=== PATIENT | female | born 1935 | race Caucasian/White ===

== ENCOUNTER 2019-02-17 01:17 | Emergency (ER) | payer OTHER ==
--- NOTE | 2019-02-17 01:55 | EDPHYS ---
Physician Documentation [facility] Name: Rashi Fitzgerald Age: 84 yrs Sex: Female : 1935 Arrival Date: 02/17/2019 Time: 01:23 Bed 17 Private MD: Shan Mir C ED Physician Sergio Koenig HPI: 02/17 01:47 This 84 yrs old Female presents to ER via Ambulatory with complaints of Eye gs Problem. 01:47 was rubbing eyelid noticed bruising of eyelid on xaralto. Onset: The symptoms/episode gs began/occurred yesterday. Duration: the symptoms are continuous. Severity of symptoms: At their worst the symptoms were moderate in the emergency department the symptoms are unchanged. Historical: - Allergies: 01:34 ROSAURA INHIBITORS; ed1 01:34 Erythromycin; ed1 01:34 Latex, Natural Rubber; ed1 01:34 Neosporin (bpr-bys-sbhty); ed1 01:34 PENICILLINS; ed1 - Home Meds: 01:34 Advair Diskus 250-50 mcg/dose Inhl dsdv 1 puff 2 times per day [Active]; carvedilol 25 ed1 mg Oral tab 2 times per day [Active]; Flonase 50 mcg/actuation Nasal spsn 1 spray once daily [Active]; Hydralazine 20 mg Oral twice a day [Active]; Klor-Con M20 20 mEq Oral TbTQ 1 tab 2 times per day [Active]; Lasix 40 mg Oral tab 1 tab once daily [Active]; lorazepam 0.5 mg Oral tab 1 tab nightly [Active]; Protonix 40 mg Oral TbEC 1 tab once daily [Active]; Sular 8.5 mg Oral Tb24 1 tab for Hypertension [Active]; Xarelto 20 mg Oral tab 1 tab once daily [Active]; - PMHx: 01:34 Anxiety; Arthritis; Atrial Fib; Bronchitis; Cancer, Breast; CHF; lumpectomy; ed1 - PSHx: 01:34 Hysterectomy; Thyroidectomy; Lumpectomy; Appendectomy; cancer removal; ed1 - Immunization history:: Adult Immunizations up to date. - Social history:: Smoking status: Patient/guardian denies using tobacco. - Ebola Screening: : Patient negative for fever greater than or equal to 101.5 degrees Fahrenheit, and additional compatible Ebola Virus Disease symptoms Patient denies exposure to infectious person Patient denies travel to an Ebola-affected area in the 21 days before illness onset No symptoms or risks identified at this time. ROS: 01:47 All other systems are negative. Exam: 01:47 Head/Face: Normocephalic, atraumatic. gs 01:47 Constitutional: The patient appears alert, awake. 01:47 Eyes: Periorbital structures: ecchymosis, that is moderate, on the left supraorbital ridge and medial canthus of left eye, Conjunctiva: normal, Corneas: are normal. Vital Signs: 01:34 BP 160 / 97; Pulse 77; Resp 18; Temp 98(TE); Pulse Ox 96% on R/A; Weight 88 kg; Height ed1 5 ft. 5 in. (165.10 cm); Pain 0/10; 01:34 Body Mass Index 32.28 (88.00 kg, 165.10 cm) ed1 MDM: 01:46 Patient medically screened. gs 01:47 Data reviewed: vital signs, nurses notes. Counseling: I had a detailed discussion with the patient and/or guardian regarding: the historical points, exam findings, and any diagnostic results supporting the discharge/admit diagnosis, the need for outpatient follow up. Response to treatment: There is no appreciated change of the patient's symptoms at this time. Administered Medications: No medications were administered Disposition: 02/17/19 01:53 Discharged to Home. Impression: Spontaneous ecchymoses. - Condition is Stable. - Discharge Instructions: Hematoma, [id number]. - Medication Reconciliation Form, Thank You Letter, Antibiotic Education, Prescription Opioid Use form. - Follow up: Private Physician; When: 2 - 3 days; Reason: Re-evaluation by your physician. Signatures: Noemi Leary RN RN ed1 Sergio Koenig MD MD Diane Day cc3 Corrections: (The following items were deleted from the chart) 02:04 01:53 02/17/2019 01:53 Discharged to Home. Impression: Spontaneous ecchymoses. cc3 Condition is Stable. Forms are Medication Reconciliation Form, Thank You Letter, Antibiotic Education, Prescription Opioid Use. Follow up: Private Physician; When: 2 - 3 days; Reason: Re-evaluation by your physician.
--- NOTE | 2019-02-17 01:55 | ER ---
Nurse's Notes [facility] Name: Rashi Fitzgerald Age: 84 yrs Sex: Female : 1935 Arrival Date: 02/17/2019 Time: 01:23 Bed 17 Private MD: Shan Mir C Diagnosis: Spontaneous ecchymoses Presentation: 02/17 01:30 Presenting complaint: Patient states: I had a cancer spot removed off of my forehead on ed1 Wednesday. My doctor told me not to stop my blood thinner. My left eye started to itch and when I looked in the mirror I noticed all of this redness around my eye scares me. Transition of care: patient was not received from another setting of care. Onset of symptoms was February 17, 2019. Risk Assessment: Do you want to hurt yourself or someone else? Patient reports no desire to harm self or others. Initial Sepsis Screen: Does the patient meet any 2 criteria? No. Patient's initial sepsis screen is negative. Does the patient have a suspected source of infection? No. Patient's initial sepsis screen is negative. Care prior to arrival: None. 01:30 Method Of Arrival: Ambulatory ed1 01:30 Acuity: LOLY 3 ed1 Triage Assessment: 01:34 General: Appears in no apparent distress. Behavior is calm, cooperative. Pain: Denies ed1 pain. EENT: Denies blurred vision. Historical: - Allergies: 01:34 ROSAURA INHIBITORS; ed1 01:34 Erythromycin; ed1 01:34 Latex, Natural Rubber; ed1 01:34 Neosporin ([id number]-tqpmf); ed1 01:34 PENICILLINS; ed1 - Home Meds: 01:34 Advair Diskus 250-50 mcg/dose Inhl dsdv 1 puff 2 times per day [Active]; carvedilol 25 ed1 mg Oral tab 2 times per day [Active]; Flonase 50 mcg/actuation Nasal spsn 1 spray once daily [Active]; Hydralazine 20 mg Oral twice a day [Active]; Klor-Con M20 20 mEq Oral TbTQ 1 tab 2 times per day [Active]; Lasix 40 mg Oral tab 1 tab once daily [Active]; lorazepam 0.5 mg Oral tab 1 tab nightly [Active]; Protonix 40 mg Oral TbEC 1 tab once daily [Active]; Sular 8.5 mg Oral Tb24 1 tab for Hypertension [Active]; Xarelto 20 mg Oral tab 1 tab once daily [Active]; - PMHx: 01:34 Anxiety; Arthritis; Atrial Fib; Bronchitis; Cancer, Breast; CHF; lumpectomy; ed1 - PSHx: 01:34 Hysterectomy; Thyroidectomy; Lumpectomy; Appendectomy; cancer removal; ed1 - Immunization history:: Adult Immunizations up to date. - Social history:: Smoking status: Patient/guardian denies using tobacco. - Ebola Screening: : Patient negative for fever greater than or equal to 101.5 degrees Fahrenheit, and additional compatible Ebola Virus Disease symptoms Patient denies exposure to infectious person Patient denies travel to an Ebola-affected area in the 21 days before illness onset No symptoms or risks identified at this time. Screenin:38 Abuse screen: Denies threats or abuse. Denies injuries from another. Nutritional cc3 screening: No deficits noted. Tuberculosis screening: No symptoms or risk factors identified. Fall Risk Ambulatory Aid- None/Bed Rest/Nurse Assist (0 pts). Gait- Normal/Bed Rest/Wheelchair (0 pts) Mental Status- Oriented to own ability (0 pts). Assessment: 01:38 General: Appears in no apparent distress. comfortable, Behavior is calm, cooperative, cc3 appropriate for age. Pain: Denies pain. Neuro: Level of Consciousness is awake, alert, obeys commands, Oriented to person, place, time, situation, Appropriate for age. Cardiovascular: Denies chest pain, Patient's skin is warm and dry. Respiratory: Airway is patent Respiratory effort is even, unlabored, Respiratory pattern is regular, symmetrical. GI: Abdomen is flat. : No signs and/or symptoms were reported regarding the genitourinary system. EENT: No signs and/or symptoms were reported regarding the EENT system. Derm: Bruising that is bright red, dark purple. Musculoskeletal: Circulation, motion, and sensation intact. Range of motion: intact in all extremities. 02:00 Reassessment: Patient appears in no apparent distress at this time. Patient and/or cc3 family updated on plan of care and expected duration. Pain level reassessed. Patient is alert, oriented x 3, equal unlabored respirations, skin warm/dry/pink. Dr. Koenig discharged the patient home, no prescription given. No IV cannula in situ. Patient left ER vitally stable and ambulatory with cane. Patient denies pain at this time. Vital Signs: 01:34 BP 160 / 97; Pulse 77; Resp 18; Temp 98(TE); Pulse Ox 96% on R/A; Weight 88 kg; Height ed1 5 ft. 5 in. (165.10 cm); Pain 0/10; 01:34 Body Mass Index 32.28 (88.00 kg, 165.10 cm) ed1 ED Course: 01:23 Patient arrived in ED. es 01:23 Shan Mir MD is Private Physician. es 01:32 Triage completed. ed1 01:34 Arm band placed on right wrist. ed1 01:38 Diane Day is Primary Nurse. cc3 01:38 Patient has correct armband on for positive identification. Bed in low position. Call cc3 light in reach. Side rails up X 1. Pulse ox on. NIBP on. 01:38 No provider procedures requiring assistance completed. Patient did not have IV access cc3 during this emergency room visit. 01:41 Sergio Koenig MD is Attending Physician. Administered Medications: No medications were administered Outcome: 01:53 Discharge ordered by . 02:00 Discharged to home ambulatory. cc3 02:00 Condition: stable 02:00 Discharge instructions given to patient, Instructed on discharge instructions, follow up and referral plans. Demonstrated understanding of instructions, follow-up care. 02:04 Patient left the ED. cc3 Signatures: Alka Becker Erika, RN RN ed1 Sergio Koenig MD MD Diane Day cc3
== END 2019-02-17 02:04 | disposition home or self-care (01) ==
LOC: ER 01:17
DX: R23.3 Spontaneous ecchymoses (principal); I48.91 Unspecified atrial fibrillation; F41.9 Anxiety disorder, unspecified; I50.9 Heart failure, unspecified; Z79.01 Long term (current) use of anticoagulants; Z85.3 Personal history of malignant neoplasm of breast; Z88.0 Allergy status to penicillin; Z88.3 Allergy status to other anti-infective agents; Z88.8 Allergy status to other drugs, medicaments and biological substances; Z91.040 Latex allergy status
CPT/HCPCS: 99283

== ENCOUNTER 2020-07-22 12:29 | Emergency (ER) | payer OTHER ==
[2020-07-22] MEDS ORDERED: DERMABOND SKIN ADHESIVE TOP ONE (14:44)
--- NOTE | 2020-07-22 14:52 | EDPHYS ---
Physician Documentation [facility] Name: Rashi Fitzgerald Age: 85 yrs Sex: Female : 1935 Arrival Date: 07/22/2020 Time: 12:35 Bed 23 Private MD: Shan Mir C ED Physician Primo Spann HPI: 07/22 14:38 This 85 yrs old Female presents to ER via Wheelchair with complaints of jr8 Laceration To Foot. 14:38 The patient presents for a laceration to the R medial foot after slicing it on the jr8 rigid part of a trash bag. The patient states that she is on blood thinners, and although the wound is small, she has been bleeding since. Denies pain, dizziness, decreased ROM, or any other symptoms.. Historical: - Allergies: 12:49 ROSAURA INHIBITORS; ca1 12:49 Erythromycin; ca1 12:49 Latex, Natural Rubber; ca1 12:49 Neosporin (aav-fop-posvl); ca1 12:49 PENICILLINS; ca1 12:49 Tetanus Vaccines \T\ Toxoid; ca1 - Home Meds: 12:49 Sular 8.5 mg Oral Tb24 1 tab for Hypertension [Active]; ca1 12:53 carvedilol 25 mg Oral tab 1 tab 2 times per day [Active]; Protonix 40 mg Oral TbEC 1 ca1 tab once daily [Active]; Lasix 40 mg Oral tab 1 tab once daily [Active]; potassium chloride 10 mEq Oral TbER 1 tab 2 times per day [Active]; hydralazine 10 mg Oral tab 1 tab 2 times per day [Active]; Xarelto 20 mg Oral tab 1 tab once daily [Active]; lorazepam 0.5 mg Oral tab 1 tab nightly [Active]; Advair Diskus 250-50 mcg/dose Inhl dsdv 1 puff 2 times per day [Active]; Flonase 50 mcg/actuation Nasal spsn 1 spray once daily [Active]; - PMHx: 12:49 Anxiety; Arthritis; Atrial Fib; Bronchitis; Cancer, Breast; lumpectomy; CHF; ca1 - PSHx: 12:49 Hysterectomy; Thyroidectomy; Lumpectomy; Appendectomy; cancer removal; ca1 - Immunization history:: Adult Immunizations up to date, Last tetanus immunization: unknown, Pneumococcal vaccine is up to date, Flu vaccine is up to date. - Social history:: Smoking status: Patient denies any tobacco usage or history of. ROS: 14:49 Eyes: Negative for injury, pain, redness, and discharge, ENT: Negative for injury, jr8 pain, and discharge, Neck: Negative for injury, pain, and swelling, Cardiovascular: Negative for chest pain, palpitations, and edema, Respiratory: Negative for shortness of breath, cough, wheezing, and pleuritic chest pain, Abdomen/GI: Negative for abdominal pain, nausea, vomiting, diarrhea, and constipation, Back: Negative for injury and pain, MS/Extremity: Negative for injury and deformity, Neuro: Negative for headache, weakness, numbness, tingling, and seizure. 14:49 Skin: Positive for laceration(s), of the right ankle. Exam: 14:49 Cardiovascular: Regular rate and rhythm with a normal S1 and S2. No gallops, murmurs, jr8 or rubs. Normal PMI, no JVD. No pulse deficits. Respiratory: Lungs have equal breath sounds bilaterally, clear to auscultation and percussion. No rales, rhonchi or wheezes noted. No increased work of breathing, no retractions or nasal flaring. MS/ Extremity: Pulses equal, no cyanosis. Neurovascular intact. Full, normal range of motion. Neuro: Awake and alert, GCS 15, oriented to person, place, time, and situation. Cranial nerves II-XII grossly intact. Motor strength 5/5 in all extremities. Sensory grossly intact. Cerebellar exam normal. Normal gait. 14:49 Skin: small 2 cm laceration superficial noted to right medial foot just distal to medial malleolus. Bleeding controlled . Vital Signs: 12:46 BP 156 / 60; Pulse 76; Resp 15 S; Temp 99.1(TE); Pulse Ox 97% ; Weight 88.9 kg (R); ca1 Height 5 ft. 6 in. (167.64 cm) (R); Pain 2/10; 15:20 BP 148 / 65; Pulse 75; Resp 16 S; Pulse Ox 97% on R/A; jd3 12:46 Body Mass Index 31.63 (88.90 kg, 167.64 cm) ca1 Laceration: 14:49 Wound Repair of 2cm ( 0.8in ) subcutaneous laceration to right leg. Distal jr8 neuro/vascular/tendon intact. Wound prep: Simple cleansing with hibiclenz, Wound irrigation with saline, Wound explored moderately. Skin closed with 1 thin layer Adhesive skin closure using Dermabond. Patient tolerated well. MDM: 14:26 Patient medically screened. [facility] 14:49 Data reviewed: vital signs, nurses notes. Data interpreted: Pulse oximetry: on room air jr8 is 97 %. Interpretation: normal. Counseling: I had a detailed discussion with the patient and/or guardian regarding: the historical points, exam findings, and any diagnostic results supporting the discharge/admit diagnosis, the need for outpatient follow up, a family practitioner, to return to the emergency department if symptoms worsen or persist or if there are any questions or concerns that arise at home. 14:51 ED course: Tetanus not updated as she is allergic too it. Last one resulted in moderate jr8 rash and itching . Administered Medications: No medications were administered Disposition: 15:57 Co-signature as Attending Physician, Primo Spann MD I agree with the assessment and [facility] plan of care. Disposition: 07/22/20 14:51 Discharged to Home. Impression: Laceration without foreign body, right foot. - Condition is Stable. - Discharge Instructions: Laceration Care, Adult. - Medication Reconciliation Form, Thank You Letter, Antibiotic Education, Prescription Opioid Use form. - Follow up: Shan Mir MD; When: As needed; Reason: Wound Recheck, Recheck today's complaints, Continuance of care, Re-evaluation by your physician. - Problem is new. - Symptoms have improved. Signatures: Primo Spann MD MD cha Roszak, Josh, PA PA jr8 Gurwinder Mccall RN RN jIna Dinero RN RN ca1 Corrections: (The following items were deleted from the chart) 15:22 14:51 07/22/2020 14:51 Discharged to Home. Impression: Laceration without foreign body, jd3 right foot. Condition is Stable. Forms are Medication Reconciliation Form, Thank You Letter, Antibiotic Education, Prescription Opioid Use. Follow up: Shan Mir; When: As needed; Reason: Wound Recheck, Recheck today's complaints, Continuance of care, Re-evaluation by your physician. Problem is new. Symptoms have improved. jr8
--- NOTE | 2020-07-22 14:52 | ER ---
Nurse's Notes [facility] Name: Rashi Fitzgerald Age: 85 yrs Sex: Female : 1935 Arrival Date: 07/22/2020 Time: 12:35 Bed 23 Private MD: Shan Mir C Diagnosis: Laceration without foreign body, right foot Presentation: 07/22 12:46 Chief complaint: Patient states: Lac on R ankle by a garbage sack. Bleeding controlled. ca1 Coronavirus screen: Client denies travel out of the [place] in the last 14 days. At this time, the client does not indicate any symptoms associated with coronavirus-19. The client denies any previous COVID testing. Ebola Screen: Patient negative for fever greater than or equal to 101.5 degrees Fahrenheit, and additional compatible Ebola Virus Disease symptoms Patient denies exposure to infectious person. Patient denies travel to an Ebola-affected area in the 21 days before illness onset. No symptoms or risks identified at this time. Complicating Factors: There are no complicating factors for this patient. Initial Sepsis Screen: Does the patient meet any 2 criteria? No. Patient's initial sepsis screen is negative. Does the patient have a suspected source of infection? No. Patient's initial sepsis screen is negative. Risk Assessment: Do you want to hurt yourself or someone else? Patient reports no desire to harm self or others. Onset of symptoms was July 22, 2020. 12:46 Method Of Arrival: Wheelchair ca1 12:46 Acuity: LOLY 4 ca1 Triage Assessment: 14:25 General: Appears in no apparent distress. comfortable, Behavior is calm, cooperative, jd3 appropriate for age. Injury Description: Abrasion sustained to right ankle. Historical: - Allergies: 12:49 ROSAURA INHIBITORS; ca1 12:49 Erythromycin; ca1 12:49 Latex, Natural Rubber; ca1 12:49 Neosporin (nwc-yrn-avyta); ca1 12:49 PENICILLINS; ca1 12:49 Tetanus Vaccines \T\ Toxoid; ca1 - Home Meds: 12:49 Sular 8.5 mg Oral Tb24 1 tab for Hypertension [Active]; ca1 12:53 carvedilol 25 mg Oral tab 1 tab 2 times per day [Active]; Protonix 40 mg Oral TbEC 1 ca1 tab once daily [Active]; Lasix 40 mg Oral tab 1 tab once daily [Active]; potassium chloride 10 mEq Oral TbER 1 tab 2 times per day [Active]; hydralazine 10 mg Oral tab 1 tab 2 times per day [Active]; Xarelto 20 mg Oral tab 1 tab once daily [Active]; lorazepam 0.5 mg Oral tab 1 tab nightly [Active]; Advair Diskus 250-50 mcg/dose Inhl dsdv 1 puff 2 times per day [Active]; Flonase 50 mcg/actuation Nasal spsn 1 spray once daily [Active]; - PMHx: 12:49 Anxiety; Arthritis; Atrial Fib; Bronchitis; Cancer, Breast; lumpectomy; CHF; ca1 - PSHx: 12:49 Hysterectomy; Thyroidectomy; Lumpectomy; Appendectomy; cancer removal; ca1 - Immunization history:: Adult Immunizations up to date, Last tetanus immunization: unknown, Pneumococcal vaccine is up to date, Flu vaccine is up to date. - Social history:: Smoking status: Patient denies any tobacco usage or history of. Screenin:21 Abuse screen: Denies threats or abuse. Nutritional screening: No deficits noted. jd3 Tuberculosis screening: No symptoms or risk factors identified. Fall Risk Ambulatory Aid- Crutches/Cane/Walker (15 pts). Gait- Normal/Bed Rest/Wheelchair (0 pts) Mental Status- Oriented to own ability (0 pts). Total Reyes Fall Scale indicates No Risk (0-24 pts). Assessment: 14:25 General: Appears in no apparent distress. comfortable, Behavior is calm, cooperative, jd3 appropriate for age. Pain: Denies pain. Neuro: Level of Consciousness is awake, alert, obeys commands, Oriented to person, place, time, situation. Cardiovascular: Denies chest pain, Capillary refill < 3 seconds Patient's skin is warm and dry. Respiratory: Airway is patent Respiratory effort is even, unlabored, Respiratory pattern is regular, symmetrical, Denies cough, shortness of breath. GI: No signs and/or symptoms were reported involving the gastrointestinal system. : No signs and/or symptoms were reported regarding the genitourinary system. EENT: No signs and/or symptoms were reported regarding the EENT system. Derm: Skin is intact, Skin is dry, Skin is normal, Skin temperature is warm. Musculoskeletal: Circulation, motion, and sensation intact. Range of motion: intact in all extremities. Injury Description: Abrasion sustained to right ankle is small amount of bleeding after taking off pressure dressing. wound cleaned. 15:21 Reassessment: Patient appears in no apparent distress at this time. Patient and/or jd3 family updated on plan of care and expected duration. Pain level reassessed. Patient is alert, oriented x 3, equal unlabored respirations, skin warm/dry/pink. Patient denies pain at this time. Patient states feeling better. Vital Signs: 12:46 BP 156 / 60; Pulse 76; Resp 15 S; Temp 99.1(TE); Pulse Ox 97% ; Weight 88.9 kg (R); ca1 Height 5 ft. 6 in. (167.64 cm) (R); Pain 2/10; 15:20 BP 148 / 65; Pulse 75; Resp 16 S; Pulse Ox 97% on R/A; jd3 12:46 Body Mass Index 31.63 (88.90 kg, 167.64 cm) ca1 ED Course: 12:35 Patient arrived in ED. ag5 12:37 Shan Mir MD is Private Physician. ag5 12:48 Triage completed. ca1 12:54 Arm band placed on right wrist. ca1 14:25 Gurwinder Mccall RN is Primary Nurse. jd3 14:26 Sarthak Lal PA is PHCP. jr8 14:26 Primo Spann MD is Attending Physician. jr8 14:51 Shan Mir MD is Referral Physician. jr8 15:20 Assist provider with laceration repair on right ankle that was 2.5 cm. or less using jd3 Dermabond. Performed by Sarthak LYNN Dressed with 4X4s, Kerlix, Patient tolerated well. Patient did not have IV access during this emergency room visit. 15:21 Patient has correct armband on for positive identification. Bed in low position. Call jd3 light in reach. Side rails up X 1. Adult w/ patient. Pulse ox on. NIBP on. Administered Medications: No medications were administered Outcome: 14:51 Discharge ordered by . jr8 15:21 Discharged to home via wheelchair, with family. jd3 15:21 Condition: stable 15:21 Discharge instructions given to patient, friend, Instructed on discharge instructions, follow up and referral plans. Demonstrated understanding of instructions, follow-up care. 15:22 Patient left the ED. jd3 Signatures: Sarthak Lal PA PA jr8 Gurwinder Mccall RN RN jd3 Ina Canales RN RN ca1 Jackson Campos ag5 Corrections: (The following items were deleted from the chart) 12:49 12:46 Pulse 76bpm; Resp 15bpm; Spontaneous; Pulse Ox 97%; Temp 99.1F Temporal; 88.9 kg ca1 Reported; Height 5 ft. 6 in. Reported; BMI: 31.6; Pain 2/10; ca1 19:48 19:48 General: Appears in no apparent distress. comfortable, Behavior is calm, jd3 cooperative, appropriate for age, jd3 19:48 19:48 Injury Description: Abrasion sustained to right ankle jd3 jd3 19:50 19:49 BP 148 / 65; Pulse 75bpm; Resp 16bpm; Spontaneous; Pulse Ox 97% RA; jd3 jd3
[2020-07-22 15:27] VITALS: BP 156/60; TEMP 99.1; O2SAT 97
== END 2020-07-22 15:22 | disposition home or self-care (01) ==
LOC: ER 12:29
PROC: 0JQQ0ZZ Repair Right Foot Subcutaneous Tissue and Fascia, Open Approach (ICD-10-PCS; principal; 2020-07-22)
DX: S91.311A Laceration without foreign body, right foot, initial encounter (principal); W26.8XXA Contact with other sharp object(s), not elsewhere classified, initial encounter; Y93.9 Activity, unspecified; Y92.9 Unspecified place or not applicable; I50.9 Heart failure, unspecified; F41.9 Anxiety disorder, unspecified; I48.91 Unspecified atrial fibrillation; I10 Essential (primary) hypertension; Z88.0 Allergy status to penicillin; Z88.3 Allergy status to other anti-infective agents; Z88.7 Allergy status to serum and vaccine; Z88.8 Allergy status to other drugs, medicaments and biological substances; Z91.040 Latex allergy status
CPT/HCPCS: 99283

== ENCOUNTER → 2020-08-28 | Day surgery (SDC) | payer OTHER ==
[2020-08-26 13:20] VITALS: BMI 32.9
--- NOTE | 2020-08-26 14:33 | RAD REPORT ---
EXAM DESCRIPTION: Tiffanie Ordonez (2 Views)08/26/2020 2:27 pm CLINICAL HISTORY: Preop for catheterization COMPARISON: 2017 FINDINGS: Right hemidiaphragm remains elevated Calcified granuloma within the left lung base The lungs appear clear of acute infiltrate. The heart is probably mildly enlarged IMPRESSION: No acute abnormalities displayed
[2020-08-26 14:36] LABS: Absolute Lymphocytes (CBC) 1.1 K/uL (0.7-4.9); Basophils % 1.2 % (0-1.3); Hematocrit 40.2 % (36.0-45.0); Lymphocytes % 20.6 % (15.3-44.8); MPV 8.8 fL (7.6-11.3); RBC Red Blood Cell Count 4.27 M/uL (3.86-4.86)
[2020-08-26 14:37] LABS: Potassium 3.9 mmol/L (3.5-5.1)
[2020-08-26 14:45] LABS: Protime INR 2.09
--- NOTE | 2020-08-27 10:17 | EKG ---
Test Date: 2020-08-26 Test Time: 13:44:05 Wireless Cellular Technician: JOAQUÍN MEASUREMENT RESULTS: Intervals: Rate: 61 IN: QRSD: 88 QT: 236 QTc: 237 [place]: P: IN: QRS: -31 T: 12 INTERPRETIVE STATEMENTS: Atrial fibrillation Left axis deviation Inferior infarct, age undetermined Abnormal ECG Compared to ECG 07/14/2017 21:50:03 Myocardial infarct finding now present Electronically Signed On 08-27-20 10:16:50 SERVER by Ramón Hui
[~2020-08-28] MED LIST: ATROPINE SULF 1 MG/10 ML SYR IV ONE; FENTANYL CITR 100 MCG/2 ML ONE; HEPA 1000U/500MLS 1,000 UNIT/500 ML BAG IV ONE; LIDOCAINE 1% 20 ML MDV ONE; MIDAZOLAM HCL 2 MG/2 ML INJ ONE; NA CHLORIDE 0.9% 500 ML ONE
--- NOTE | 2020-08-28 06:12 | EKG ---
Test Date: 2020-08-26 Test Time: 13:46:01 Counselor Aide: JOAQUÍN MEASUREMENT RESULTS: Intervals: Rate: 57 [place]: QRSD: 80 QT: 450 QTc: 438 [place]: P: NC: QRS: -55 T: -90 INTERPRETIVE STATEMENTS: Atrial fibrillation with slow ventricular response Left axis deviation Inferior infarct, age undetermined Abnormal ECG Compared to ECG 08/26/2020 13:44:05 No significant changes Electronically Signed On 08-28-20 06:09:44 PEDIATRIC CLINICAL NURSE SPECIALIST by Ramón Hui
--- NOTE | 2020-08-28 08:21 | OP ---
Surgeon: Ramón Hui MD Quality Assurance Monitor Chassis: Felix Jacobs. The patient was admitted as an outpatient to the electronic lab technician today on 08/28/2020 for selective bilateral carotid angiogram. Indication: Cerebrovascular disease. Procedure In Detail: The patient was prepped and draped in the routine sterile fashion. Given Verse d and fentanyl for sedation. Using the Seldinger technique, 6-Algerian sheath was introduced in the [facility] common femoral artery after 10 cc of xylocaine. Then, a JR4 catheter 6-Algerian was used to cannul ate the common carotid artery on the right and then selectively the one on the left side. There were no complications. Blood Loss: 5 mL. Postoperative Diagnosis: Cerebrovascular disease, severe left internal carotid artery stenosis. Plan: For left carotid endarterectomy. Anesthesia: Total conscious sedation was 45 minutes. Final Impression: The common carotid artery was normal on both sides. External carotid artery was n ormal on both sides. The left internal carotid was 99% ostial, ulcerated plaque. The right internal carotid was 40%. FREDRICK/CIELO Voice ID: [id number] Report ID: [id number]
[2020-08-28 11:14] VITALS: O2SAT 98
[2020-08-28 12:38] VITALS: BP 152/75; TEMP 97.5
== END ==
LOC: CCL 06:30
DX: I65.22 Occlusion and stenosis of left carotid artery (principal); Z20.828 Contact with and (suspected) exposure to other viral communicable diseases; I27.0 Primary pulmonary hypertension; I34.0 Nonrheumatic mitral (valve) insufficiency; I48.0 Paroxysmal atrial fibrillation; I35.8 Other nonrheumatic aortic valve disorders; K21.9 Gastro-esophageal reflux disease without esophagitis; J45.20 Mild intermittent asthma, uncomplicated; E66.9 Obesity, unspecified; Z82.49 Family history of ischemic heart disease and other diseases of the circulatory system; Z68.33 Body mass index [BMI] 33.0-33.9, adult
CPT/HCPCS: 93005 ×2; 85025; 80048; 36415; 85610; 85730; 71046; 36222; U0002; C1893; C1760; J2250; J3010; J7040; J1644

== ENCOUNTER 2022-09-16 08:32 | Emergency (ER) | payer OTHER ==
--- OUTSIDE RECORDS SUMMARY | 2022-09-16 08:35 | XMS REPORT | Continuity of Care Document ---
:1935 Author Organization [facility] t Address [address] [place] [address] Care Team Providers Name Role Phone CHRISS BOWLES Attending Clinician Unavailable CHRISS BOWLES Admitting Clinician Unavailable NOHEMY DRUMMOND Admitting Clinician Unavailable Payers Payer Name Policy Type Policy Number Effective Date Expiration Date [facility] [id number] 2018 ADV 00:00:00 Problems Condition Condition Condition Status Onset Resolution Last Treating Co mments Source Name Details Category Date Date Treatment Clinician Date Carotid Carotid Disease Active 2020[facility] Carotid Carotid Disease Active 2020- [facility] stenosis, stenosis, 2-02 [facility] Center Allergies, Adverse Reactions, Alerts Allergy Allergy Status Severity Reaction(s) Onset Inactive Treating Comm ents Source Name Type Date Date Clinician GUCCI Allergy Active 2019- [facility] INHIBITO 2[facility] AZITHROM Allergy Active 2019- [facility] YCIN [facility] NEOMYCIN Allergy Active 2020- [facility] NEOMYCIN Allergy Active 2020- [facility] -BACITRA 2-02 [facility] CNZN-GEOFFREY 00:00: Medical YMYXNB 00 Center PENICILL Allergy Active 2020- [facility] INS [facility]-02 [facility] LATEX Allergy Active Low Rash 2020- [facility] Gucci Propensi Active 2019- [facility] Inhibito ty to 2-02 [facility] rs adverse 00:00: Medical reaction 00 Center s Azithrom Propensi Active 2019-[address] [facility] ycin ty to 2- [facility] adverse 00:00: Medical reaction 00 Center s Latex Propensi Active Rash 2019- [facility] ty to 2- [facility] adverse 00:00: Medical reaction 00 Center s Neomycin Propensi Active 2019- [facility] ty to 2- [facility] adverse 00:00: Medical reaction 00 Center s Neomycin Propensi Active 2019-[address] -Bacitra ty to 10-29 [facility] cnzn-Geoffrey adverse 00:00: Medical ymyxnb reaction 00 Center s Penicill Propensi Active 2019-[address] ins ty to - [facility] adverse 00:00: Medical reaction 00 Center s NO KNOWN Allergy Active [facility] Social History Social Habit Start Date Stop Date Quantity Comments Source Alcohol intake 2020-09-12 2020-09-12 Ex-drinker [facility] Sex Assigned At [address] [facility] Yom[facility] kes 00:00:00 00:00:00 [facility] Medications Ordered Filled Start Stop Current Ordering Indication Dosage Frequency Signature Comments Components Source Medication Medication Date Date Medication? Clinician (SIG) Name Name potassium 2019-09 Yes 20meq Q.5D Take [address] [facility] chloride 2-17 mEq by [facility] (KLOR-CON) 10:54: mouth 2 Medi omi 20 mEq 23 (two) Center packet times daily . rivaroxaban 2019-09 Yes Take by [facility] (XARELTO) 2-17 mouth [facility] 20 mg Tab 10:54: daily with Me dical tablet 23 dinner. [place] potassium 2019-09 Yes 30meq Q.5D Take [address] [facility] chloride 2-17 mEq by [facility] (KLOR-CON) 10:54: mouth 2 Medi omi 10 MEQ CR 23 (two) Center tablet times daily. fluticasone 2019-09 Yes 2{puff} Q.5D Inhale [address] [facility] propion-kwasi 2-17 puffs by [facility] meteroL 10:53: mouth via Medic al (ADVAIR 16 inhaler 2 Center HFA) 115-21 (two) mcg/actuati times on inhaler daily. carvediloL 2019-09 Yes 25mg Take [address] (COREG) 25 2-17 by mouth 2 [place] MG tablet 10:53: (two) Medical 16 times Center daily with breakfast and dinner. loratadine 2019-09 Yes 10mg Take [address] (CLARITIN) 2-17 by mouth [facility] 10 mg 10:53: daily as Medical tablet 16 needed for Center Allergies. furosemide 2019-09 Yes 40mg Q.5D Take [address] (LASIX) 40 2-17 by mouth 2 [place] MG tablet 10:53: (two) Medical 16 times Center daily. hydrALAZINE 2019-09 Yes 20mg Q.5D Take [address] [facility] (APRESOLINE 2-17 by mouth 2 Yomaira kes ) 10 MG 10:53: (two) Medical tablet 16 times Center daily . LORazepam 2019-09 Yes .5mg Take 0.[address] [facility] [facility] (ATIVAN) 2-17 mg by [facility] 0.5 MG 10:53: mouth once Medic al tablet 16 at Center bedtime. nisoldipine 2019-09 Yes 8.5mg Take 8.[address] (SULAR) 8.5 2-17 mg by [facility] MG 24 hr 10:53: mouth Medical tablet 16 daily as Center needed. pantoprazol 2019-09 Yes 40mg QD Take [address] [facility] e 2-17 by mouth [facility] (PROTONIX) 10:53: daily. Medic al 40 MG 16 Center tablet Vital Signs Vital Name Observation Time Observation Value Comments Source WEIGHT 2020-08-30 08:00:00 93.396 kg WEIGHT 2020-08-29 08:08:00 93.2 kg HEIGHT 2020-08-28 14:44:00 167.6 cm WEIGHT 2020-08-28 14:44:00 92.942 kg WEIGHT 2020-09-12 10:45:00 92.761 kg WEIGHT 2020-08-30 08:00:00 93.396 kg WEIGHT 2020-08-29 08:08:00 93.2 kg HEIGHT 2020-08-28 14:44:00 167.6 cm WEIGHT 2020-08-28 14:44:00 92.942 kg Procedures This patient has no known procedures. Plan of Care Planned Activity Planned Date Details Comments Source Future Scheduled 2022-05-28 INFLUENZA VACCINE (#1) [facility] 00:00:00 [code = INFLUENZA Medical Ce nter VACCINE (#1)] Future Scheduled 2021-09-[address] [facility] Test 00:00:00 (12+) [code = Medical Center DEPRESSION SCREENING (12+)] Future Scheduled 2021-09-27 FALLS RISK SCREENING [facility] Test 00:00:00 [code = FALLS RISK Medical C enter SCREENING] Future Scheduled 2019-09-[address] [facility] Test 00:00:00 WELLNESS (YEAR 2 or Medical Center FIRST YEAR if no IPPE) [code = MEDICARE ANNUAL WELLNESS (YEAR 2 or FIRST YEAR if no IPPE)] Future Scheduled 1999 PNEUMOCOCCAL 65+ YRS [facility] 00:00:00 (1 - PCV) [code = Medical Ce nter PNEUMOCOCCAL 65+ YRS (1 - PCV)] Future Scheduled 1984-01-14 SHINGLES VACCINES ([address] [facility] Test 00:00:00 of 2) [code = SHINGLES Medic al Center VACCINES (1 of 2)] Future Scheduled 1953 DTAP/TDAP/TD VACCINES [facility] 00:00:00 (1 - Tdap) [code = Medical C enter DTAP/TDAP/TD VACCINES (1 - Tdap)] Future Scheduled [address] [facility] Test 00:00:00 Counseling and Medical Cente r Screening (12+) [code = Tobacco Cessation Counseling and Screening (12+)] Future Scheduled 1934 COVID-19 VACCINE (#1) [facility] 00:00:00 [code = COVID-[address] VACCINE (#1)] Encounters Start End Encounter Admission Attending Care Care Encounter Source Date/Time Date/Time Type Type Clinicians Facility Department ID 2021-07-04 Inpatient ER ELINA BOWLES Surgery [id number] [facility] 18:26:59 CHRISS 2020-09-12 2020-09-12 Outpatient EL ELINA BOWLES [facility] [id number] [facility] 00:00:00 00:00:00 CHRISS Results Test Description Test Time Test Comments Results Result Sourc e Comments TISSUE EXAM 2020-09-06 Surgical Pathology 18:38:00 Report Case: [id number] Authorizing Provider: Chriss Bowles, Collected: 08/28/2020 05:01 PM Ordering Location: [facility] ALEXI KAUR Received: 08/29/2020 08:23 AM PERIOPERATIVE SERVICES Pathologist: Gerber Caro MD Specimen: Plaque, Left carotid plaque ARTERY, LEFT CAROTID, ENDARTERECTOMY:CALCIFI C ATHEROSCLEROTIC PLAQUE WITH INTIMAL ULCERATION AND FIBRIN LUMINAL THROMBOSIS Signing Pathologist Direct Phone Line: [phone] ally signed by Gerber Caro MD on 09/06/2020 at 6:38 [id number]; [id number] artery disease without angina pectoris, unspecified vessel or lesion type, unspecified whether [place] or transplanted heart PlaqueReceived in formalin labeled the patient's name, accession number and "left carotid plaque" is a 3.0 x 0.9 x 0.5 cm aggregate of clement-yellow tubular, focally calcified plaque. Pc Tech sections are submitted in A1 following decalcification.LEAH Frost, HT (ASCP)Performed BASIC METABOLIC PANEL 2020-08-30 06:30:00 Test Item Value Reference Range Interpretation Comme nts SODIUM (BEAKER) (test code 141 meq/L 136-145 = 381) POTASSIUM (BEAKER) (test 3.8 meq/L 3.5-5.1 code = 379) CHLORIDE (BEAKER) (test 101 meq/L 98-107 code = 382) CO2 (BEAKER) (test code = 29 meq/L 22-29 355) BLOOD UREA NITROGEN 21 mg/dL 7-21 (BEAKER) (test code = 354) CREATININE (BEAKER) (test 1.02 mg/dL 0.57-1.25 code = 358) GLUCOSE RANDOM (BEAKER) 103 mg/dL 70-105 (test code = 652) CALCIUM (BEAKER) (test code 8.8 mg/dL 8.4-10.2 = 697) EGFR (BEAKER) (test code = 51 mL/min/1.73 sq m ESTIMATED GFR IS NOT 1092) ACCURATE CRE ATININE CLEARANCE IN [place] EDICTING GLOMERULAR FILT RATION RATE. ESTIMATED GFR IS NOT APPLICABLE FOR DIALYSIS PATIENTS. Quality Assurance Group Leader ID - [id number] 06:30:00 Test Item Value Reference Range Interpretation Comments MAGNESIUM (BEAKER) (test code = 2.0 mg/dL 1.6-2.6 627) Quality Assurance Group Leader ID - [id number] (HEMOGRAM ONLY)2020-08-30 05:42:00 Test Item Value Reference Range Interpretation Comments WHITE BLOOD CELL COUNT (BEAKER) 7.7 K/ L 3.5-10.5 (test code = 775) RED BLOOD CELL COUNT (BEAKER) 3.84 M/ L 3.93-5.22 L (test code = 761) HEMOGLOBIN (BEAKER) (test code = 12.0 GM/DL 11.2-15.7 410) HEMATOCRIT (BEAKER) (test code = 38.5 % 34.1-44.9 411) MEAN CORPUSCULAR VOLUME (BEAKER) 100.3 fL 79.4-94.8 H (test code = 753) MEAN CORPUSCULAR HEMOGLOBIN 31.3 pg 25.6-32.2 (BEAKER) (test code = 751) MEAN CORPUSCULAR HEMOGLOBIN CONC 31.2 GM/DL 32.2-35.5 L (BEAKER) (test code = 752) RED CELL DISTRIBUTION WIDTH 14.6 % 11.7-14.4 H (BEAKER) (test code = 412) PLATELET COUNT (BEAKER) (test 178 K/CU MM 150-450 code = 756) MEAN PLATELET VOLUME (BEAKER) 10.4 fL 9.4-12.3 (test code = 754) NUCLEATED RED BLOOD CELLS 0 /100 WBC 0-0 (BEAKER) (test code = 413) BASIC METABOLIC [id number] 07:05:00 Test Item Value Reference Range Interpretation Comments SODIUM (BEAKER) 141 meq/L 136-145 (test code = 381) POTASSIUM (BEAKER) 4.1 meq/L 3.5-5.1 (test code = 379) CHLORIDE (BEAKER) 103 meq/L 98-107 (test code = 382) CO2 (BEAKER) (test 26 meq/L 22-29 code = 355) BLOOD UREA NITROGEN 15 mg/dL 7-21 (BEAKER) (test code = 354) CREATININE (BEAKER) 0.92 mg/dL 0.57-1.25 (test code = 358) GLUCOSE RANDOM 131 mg/dL 70-105 H (BEAKER) (test code = 652) CALCIUM (BEAKER) 9.1 mg/dL 8.4-10.2 (test code = 697) EGFR (BEAKER) (test 58 mL/min/1.73 ESTIMA JOANNA GFR IS code = 1092) sq m NOT ACCURATE CREATININE CLEARANCE IN PREDICTING GLOMERULAR FILTRATION RATE . ESTIMATED GFR I S NOT APPLICABLE FOR DIALYSIS PATIEN TS. Quality Assurance Group Leader ID - SANDRA [id number] 07:05:00 Test Item Value Reference Range Interpretation Comments MAGNESIUM (BEAKER) (test code = 2.2 mg/dL 1.6-2.6 627) Quality Assurance Group Leader ID - SANDRA MCBC (HEMOGRAM ONLY)2020-08-29 06:13:00 Test Item Value Reference Range Interpretation Comments WHITE BLOOD CELL COUNT (BEAKER) 7.2 K/ L 3.5-10.5 (test code = 775) RED BLOOD CELL COUNT (BEAKER) 4.04 M/ L 3.93-5.22 (test code = 761) HEMOGLOBIN (BEAKER) (test code = 12.6 GM/DL 11.2-15.7 410) HEMATOCRIT (BEAKER) (test code = 40.7 % 34.1-44.9 411) MEAN CORPUSCULAR VOLUME (BEAKER) 100.7 fL 79.4-94.8 H (test code = 753) MEAN CORPUSCULAR HEMOGLOBIN 31.2 pg 25.6-32.2 (BEAKER) (test code = 751) MEAN CORPUSCULAR HEMOGLOBIN CONC 31.0 GM/DL 32.2-35.5 L (BEAKER) (test code = 752) RED CELL DISTRIBUTION WIDTH 14.6 % 11.7-14.4 H (BEAKER) (test code = 412) PLATELET COUNT (BEAKER) (test 184 K/CU MM 150-450 code = 756) MEAN PLATELET VOLUME (BEAKER) 10.5 fL 9.4-12.3 (test code = 754) NUCLEATED RED BLOOD CELLS 0 /100 WBC 0-0 (BEAKER) (test code = 413) SARS-COV2/RT-PCR ([facility])2020-08-28 18:57:00 Test Item Value Reference Range Interpretation Comments SARS-COV2/RT-PCR (test Negative Not Detected, Negative, code = 3200067) See external report for linked test SARS-COV-2 PERFORMING LAB [facility] (test code = 3902200) Negative result for this test determines that SARS-CoV-2 RNA was not present in the specimen above the Limit of Detection (LOD). However, Negative results do not preclude SARS-CoV-2 infection and should not be used as the sole basis for treatment or patient management decisions. Negative results must be combined with clinical observations, patient history, and epidemiological information. A false negative result may occur if a specimen is improperly collected, transported or handled. A false negative result should be considered if patient's recent exposures or clinical presentation indicate that COVID-19 (SARS-CoV-2) is likely and diagnostic tests for other causes of illness are negative. Re-testing should be considered in cases of suspected false negatives.The limit of detection for this assay is 800 copies/mL.This SARS CoV-2 test is a real-time RT-PCR test intended for the qualitative detection of nucleic acid from SARS-CoV-2 in a nasopharyngeal swab specimen collected from individuals suspected of COVID-19 by their healthcare provider.This test has not been Food and Drug Administration (FDA) cleared or approved. This is a modified version of an approved Emergency Use Authorization (EUA) and is in the process of review by the FDA. Once authorized by the FDA, the issued EUA will be effective until the declaration that circumstances exist justifying the authorization of the emergency use ofin vitro diagnostic tests for detection and/or diagnosis of COVID-19 is terminated under Section 564(b)(2) of the Act or the EUA is revoked under Section 564(g) of the Act.Fact Sheet for Healthcare Prov iders:https://www.[employer]/sites/default/files/product/documents/Fact_Sheet_HC _Cdhxazvqj_Xmrl_UOXC-PpF-9.pdfFact Sheet for Healthcare Patients:https://www.[employer]/sites/default/files/product/docume nts/Bhur_Tbugn_Esydfdws_Asgz_FSIW-TlZ-2.pdfPerforming Laboratory:[facility] [place] [address]
--- NOTE | 2022-09-16 09:18 | RAD REPORT ---
EXAM DESCRIPTION: CT - CTHCSPWOC - 09/16/2022 8:57 am CLINICAL HISTORY: Trauma, head and neck injury. fall COMPARISON: <Comparisons> TECHNIQUE: Axial 5 mm thick images of the head were obtained. Axial 2 mm thick images of the cervical spine were obtained with sagittal and coronal reconstruction images generated and reviewed. All CT scans are performed using dose optimization technique as appropriate and may include automated exposure control or mA/KV adjustment according to patient size. FINDINGS: CT HEAD WITHOUT CONTRAST: No acute hemorrhage, hydrocephalus or extra-axial collection is identified.Mild generalized brain atr ophy.No areas of brain edema or midline shift. The paranasal sinuses and mastoids are clear.The calvarium is intact. CT CERVICAL SPINE WITHOUT CONTRAST: No fracture or subluxation.Mild multilevel cervical degenerative changes.No prevertebral soft tissues swelling is identified. IMPRESSION: No acute intracranial or cervical spine findings.
--- NOTE | 2022-09-16 09:25 | RAD REPORT ---
EXAM DESCRIPTION: CT - CTFB CLINICAL HISTORY: fall, face trauma COMPARISON: No comparisonsNo comparisons TECHNIQUE: Axial 2 mm thick images of the face were obtained with sagittal and coronal reconstructio n images. All CT scans are performed using dose optimization technique as appropriate and may include automated exposure control or mA/KV adjustment according to patient size. FINDINGS: No acute facial bone fracture is seen.The mandible is intact. The globes and orbital contents are grossly unremarkable.The paranasal sinuses and mastoids are clear . IMPRESSION: Negative for facial bone fracture.
--- NOTE | 2022-09-16 09:33 | RAD REPORT ---
EXAM DESCRIPTION: RAD - Chest Single View - 09/16/2022 9:10 am CLINICAL HISTORY: fall Chest pain. COMPARISON: Chest Pa And Lat (2 Views) dated 08/26/2020; Chest Pa And Lat (2 Views) dated 07/14/2017 ; Chest Pa And Lat (2 Views) dated 01/02/2017; Chest Single View dated 01/28/2016 FINDINGS: Portable technique limits examination quality. The lungs are grossly clear. Chronically elevated right hemidiaphragm. The heart is normal in size. N o displaced fractures. IMPRESSION: No acute intrathoracic process suspected.
--- NOTE | 2022-09-16 09:39 | RAD REPORT ---
EXAM DESCRIPTION: RAD - Shoulder Left 2 View - 09/16/2022 9:10 am CLINICAL HISTORY: PAIN COMPARISON: No comparisons FINDINGS: Moderate AC joint and glenohumeral joint arthritic changes are present. Diffuse osteopenia is seen. No acute fracture or dislocation.
--- NOTE | 2022-09-16 09:42 | EDPHYS ---
Physician Documentation [facility] Name: Rashi Fitzgerald Age: 87 yrs Sex: Female : 1935 Arrival Date: 09/16/2022 Time: 08:46 Bed 19 Private MD: ED Physician Andre Tolliver HPI: 09/16 08:45 This 87 yrs old Female presents to ER via EMS with complaints of Fall Injury. [facility] 08:45 Details of fall: The patient fell from an upright position, while walking. Onset: The [facility] symptoms/episode began/occurred acutely. Associated injuries: The patient sustained injury to the head, abrasion, contusion, neck injury, pain, anterior aspect of left shoulder, contusion, decreased range of motion. Patient reports that she was walking out of her bathroom and that she slipped on an upturned lip of the carpet. Reports that her left shoulder and left side of her face took most of the impact. Complains of left shoulder pain, nose pain, and left facial pain. Denies LOC. Patient is calm and alert and oriented x4 at this time. Reports that she is on Xarelto and has a history of A. fib.. Historical: - Allergies: 08:51 ROSAURA INHIBITORS; ph 08:51 Erythromycin; ph 08:51 Latex, Natural Rubber; ph 08:51 Neosporin ([id number]); ph 08:51 PENICILLINS; ph 08:51 Tetanus Vaccines \T\ Toxoid; ph - Home Meds: 08:51 Lasix 40 mg Oral tab 1 tab once daily [Active]; carvedilol 25 mg Oral tab 1 tab 2 times ph per day [Active]; hydralazine 10 mg Oral tab 1 tab 2 times per day [Active]; potassium chloride 10 mEq Oral TbER 1 tab 2 times per day [Active]; Xarelto 20 mg Oral tab 1 tab once daily [Active]; Protonix 40 mg Oral TbEC 1 tab once daily [Active]; - PMHx: 08:51 Anxiety; Arthritis; Atrial Fib; Bronchitis; Cancer, Breast; CHF; lumpectomy; ph - Immunization history: Last tetanus immunization: unknown. - Social history:: Smoking status: Patient denies any tobacco usage or history of. ROS: 08:45 Constitutional: Negative for fever, chills, and weight loss, Eyes: Negative for injury, jh7 pain, redness, and discharge. 08:45 ENT: Negative for injury, pain, and discharge, Cardiovascular: Negative for chest pain, palpitations, and edema, Respiratory: Negative for shortness of breath, cough, wheezing, and pleuritic chest pain, Abdomen/GI: Negative for abdominal pain, nausea, vomiting, diarrhea, and constipation, Back: Negative for injury and pain, Neuro: Negative for headache, weakness, numbness, tingling, and seizure. 08:45 Neck: Positive for pain with movement, of the neck. 08:45 MS/extremity: Positive for contusion, decreased range of motion, tenderness, of the anterior aspect of left shoulder. 08:45 Skin: Positive for abrasion(s), Negative for laceration(s). 08:45 All other systems are negative. Exam: 08:45 Constitutional: This is a well developed, well nourished patient who is awake, alert, jh7 and in no acute distress. Eyes: Pupils equal round and reactive to light, extra-ocular motions intact. Lids and lashes normal. Conjunctiva and sclera are non-icteric and not injected. Cornea within normal limits. Periorbital areas with no swelling, redness, or edema. ENT: Nares patent. No nasal discharge, no septal abnormalities noted. Tympanic membranes are normal and external auditory canals are clear. Oropharynx with no redness, swelling, or masses, exudates, or evidence of obstruction, uvula midline. Mucous membranes moist. Cardiovascular: Regular rate and rhythm with a normal S1 and S2. No gallops, murmurs, or rubs. Normal PMI, no JVD. No pulse deficits. Respiratory: Lungs have equal breath sounds bilaterally, clear to auscultation and percussion. No rales, rhonchi or wheezes noted. No increased work of breathing, no retractions or nasal flaring. Abdomen/GI: Soft, non-tender, with normal bowel sounds. No distension or tympany. No guarding or rebound. No evidence of tenderness throughout. Back: No spinal tenderness. No costovertebral tenderness. Full range of motion. 08:45 Neuro: Awake and alert, GCS 15, oriented to person, place, time, and situation. Cranial nerves II-XII grossly intact. Motor strength 5/5 in all extremities. Sensory grossly intact. Cerebellar exam normal. Normal gait. 08:45 Head/face: Noted is abrasion(s), that are mild, of the forehead and nose. 08:45 Neck: External neck: tenderness, that is mild, of the left mid cervical area and right mid cervical area, C-spine: C-collar placed GOVERNMENT AFFAIRS DIRECTOR, ROM/movement: limited range of motion, due to c-collar in place. 08:45 Musculoskeletal/extremity: ROM: Limited abduction of the left shoulder to 90 degrees secondary to pain. There is a moderate sized contusion present on the anterior aspect of the left shoulder., Circulation is intact in all extremities. Sensation intact. 08:45 Skin: injury, abrasion(s), small abrasion noted, of the nose and face. Vital Signs: 08:54 BP 165 / 70; Pulse 83; Resp 18; Temp 97.9; Pulse Ox 97% on R/A; Weight 92.99 kg; Height ph 5 ft. 6 in. (167.64 cm); 10:03 BP 149 / 69; Pulse 72; Resp 18; Temp 97.9; Pulse Ox 97% on R/A; ph 08:54 Body Mass Index 33.09 (92.99 kg, 167.64 cm) ph [place] Coma Score: 08:54 Eye Response: spontaneous(4). Verbal Response: oriented(5). Motor Response: obeys ph commands(6). Total: 15. 10:03 Eye Response: spontaneous(4). Verbal Response: oriented(5). Motor Response: obeys ph commands(6). Total: 15. Trauma Score (Adult): 08:45 Eye Response: spontaneous(1); Verbal Response: oriented(1); Motor Response: obeys jh7 commands(2); Systolic BP: > 89 mm Hg(4); Respiratory Rate: 10 to 29 per min(4); Gregorio Score: 15; Trauma Score: 12 08:54 Eye Response: spontaneous(1); Verbal Response: oriented(1); Motor Response: obeys ph commands(2); Systolic BP: > 89 mm Hg(4); Respiratory Rate: 10 to 29 per min(4); [place] Score: 15; Trauma Score: 12 10:03 Eye Response: spontaneous(1); Verbal Response: oriented(1); Motor Response: obeys ph commands(2); Systolic BP: > 89 mm Hg(4); Respiratory Rate: 10 to 29 per min(4); Gregorio Score: 15; Trauma Score: 12 Procedures: 09:38 Cervical collar removed, at September 16, 2022 at 09:39. [facility] MDM: 08:46 Patient medically screened. [facility] 09:46 Differential diagnosis: abrasion, closed head injury, contusion, fracture, multiple [facility] trauma. Data reviewed: vital signs, nurses notes, radiologic studies, CT scan, plain films. Data interpreted: Pulse oximetry: is 97 %. Interpretation: normal. Counseling: I had a detailed discussion with the patient and/or guardian regarding: the historical points, exam findings, and any diagnostic results supporting the discharge/admit diagnosis, to return to the emergency department if symptoms worsen or persist or if there are any questions or concerns that arise at home. Special discussion: Instructed the patient to take Tylenol for pain, ice the affected area as for the next 24 to 48 hours, and then utilize heat to help with mobility. If she develops any new concerning symptoms, she may return to the ER for further eval.. 09/16 08:47 Order name: CT Head C Spine; Complete Time: 09:26 [facility] 09/16 08:47 Order name: CT Facial Bones W/O Con [facility] 09/16 08:47 Order name: XRAY Shoulder LEFT 2 view; Complete Time: 09:40 [facility] 09/16 08:47 Order name: XRAY Chest (1 view); Complete Time: 09:34 [facility] 09/16 08:53 Order name: Facial Bones W/ Mpr; Complete Time: 09:32 EDMS Administered Medications: 10:01 Drug: Tylenol 650 mg Route: PO; ph 10:04 Follow up: Response: No adverse reaction ph Disposition: 10:38 Co-signature as Attending Physician, Andre Tolliver MD I agree with the assessment and rt plan of care. Disposition Summary: 09/16/22 09:41 Discharge Ordered Location: Home [facility] Problem: new [facility] Symptoms: are unchanged [facility] Condition: Stable [facility] Diagnosis - Contusion of left shoulder 7 - Abrasion of nose 7 - Abrasion of unspecified part of head 7 - Fall on same level, unspecified [facility] Followup: [facility] - With: Private Physician - When: 2 - 3 days - Reason: Recheck today's complaints Discharge Instructions: - Discharge Summary Sheet jh7 - Abrasion jh7 - Fall Prevention in the Home, Adult jh7 - Shoulder Pain jh7 Forms: - Medication Reconciliation Form jh7 - Thank You Letter 7 Signatures: Dispatcher [employer] Vianca Jackson RN RN ph Teena Cox, LOCAL GOVERNMENT LEGISLATOR LOCAL GOVERNMENT LEGISLATOR jh7 Andre Tolliver MD MD rt Corrections: (The following items were deleted from the chart) 08:59 08:45 Associated injuries: The patient sustained injury to the head, abrasion, jh7 contusion, anterior aspect of left shoulder, contusion, decreased range of motion, jh7
--- NOTE | 2022-09-16 09:42 | ER ---
Nurse's Notes [facility] Name: Rashi Fitzgerald Age: 87 yrs Sex: Female : 1935 Arrival Date: 09/16/2022 Time: 08:46 Bed 19 Private MD: Diagnosis: Contusion of left shoulder;Abrasion of nose;Abrasion of unspecified part of head;Fall on same level, unspecified Presentation: 09/16 08:46 Chief complaint: EMS states: Pt tripped and fell while ambulating from restroom, landed ph on L shoulder, no LOC, does take Xarelto. C/O pain to L shoulder and L side of neck, abrasions to face, no active bleeding upon arrival to ED, pt A\T\O x 4. Care prior to arrival: Cervical collar in place. Mechanism of Injury: Fall from standing position. Trauma event details: Injury occurred in the [facility], Injury occurred: at home. Injury occurred: September 16, 2022. 08:46 Acuity: LOLY 4 ph 08:46 Method Of Arrival: EMS: [facility] ph 08:55 Coronavirus screen: Vaccine status: Patient reports receiving the 2nd dose of the covid ph vaccine. Ebola Screen: No symptoms or risks identified at this time. Initial Sepsis Screen: Does the patient meet any 2 criteria? No. Patient's initial sepsis screen is negative. Does the patient have a suspected source of infection? No. Patient's initial sepsis screen is negative. Risk Assessment: Do you want to hurt yourself or someone else? Patient reports no desire to harm self or others. Onset of symptoms was September 16, 2022. Trauma Activation: Alert Physician: ED Physician; Name: Sharee; Notified At: 08:46; Arrived At: 08:46 Physician: General Surgeon; Name: ; Notified At: 08:46; Arrived At: Physician: Radiology; Name: Rakel; Notified At: 08:46; Arrived At: 08:47 Physician: Respiratory; Name: ; Notified At: 08:46; Arrived At: Physician: Lab; Name: ; Notified At: 08:46; Arrived At: Historical: - Allergies: 08:51 ROSAURA INHIBITORS; ph 08:51 Erythromycin; ph 08:51 Latex, Natural Rubber; ph 08:51 Neosporin ([id number]); ph 08:51 PENICILLINS; ph 08:51 Tetanus Vaccines \T\ Toxoid; ph - Home Meds: 08:51 Lasix 40 mg Oral tab 1 tab once daily [Active]; carvedilol 25 mg Oral tab 1 tab 2 times ph per day [Active]; hydralazine 10 mg Oral tab 1 tab 2 times per day [Active]; potassium chloride 10 mEq Oral TbER 1 tab 2 times per day [Active]; Xarelto 20 mg Oral tab 1 tab once daily [Active]; Protonix 40 mg Oral TbEC 1 tab once daily [Active]; - PMHx: 08:51 Anxiety; Arthritis; Atrial Fib; Bronchitis; Cancer, Breast; CHF; lumpectomy; ph - Immunization history: Last tetanus immunization: unknown. - Social history:: Smoking status: Patient denies any tobacco usage or history of. Screenin:54 [facility] ED Fall Risk Assessment (Adult) History of falling in the last 3 months, ph including since admission Yes- single mechanical fall (1 pt) Confusion or Disorientation No (0 pts) Intoxicated or Sedated No (0 pts) Impaired Gait Yes (1 pt) Mobility Assist Device Used No (0 pt) Altered Elimination Yes (1 pt) Score/Fall Risk Level 3 or more points = High Risk Maintained a safe environment, Used ambulatory aids as needed (educated on \T\ assisted with), Remained with patient while ambulating. Abuse screen: Denies threats or abuse. Denies injuries from another. Nutritional screening: No deficits noted. Tuberculosis screening: No symptoms or risk factors identified. Primary Survey: 08:52 NO uncontrolled hemorrhage observed. A: The client is awake and alert. The airway is ph patent. Breathing/Chest: Spontaneous respiratory effort, equal unlabored respirations, breath sounds clear bilaterally, regular pattern, symmetrical chest rise and fall. Circulation: No external hemorrhage present. Regular and strong central pulse, skin warm/dry/normal color. Disability Pupils are equal, round, reactive to light and accommodation. Client is alert. Exposure/Environment: There is no evidence of uncontrolled external bleeding. Obvious injury(ies) are noted at this time: abrasions to bride of nose and above L eyebrow, also has bruising to L shoulder A warming method has been applied: A warm blanket has been provided to the patient. 10:04 Reassessment Alertness and Airway: Awake and alert. The airway is patent. Breathing: ph Spontaneous respiratory effort, equal unlabored respirations, breath sounds clear bilaterally, regular pattern with symmetrical chest rise and fall. Circulation: No external hemorrhage noted. Regular and strong central pulse, skin warm/dry/normal color. Disability: Pupils Pupils are equal, round, reactive to light and accomodation. Alert. Secondary Survey: 08:53 HEENT: Face Other abrasion to bridge of nose and outer aspect of L eyebrow. ph Musculoskeletal: bruising to L shoulder Reports pain in anterior aspect of left shoulder. Assessment: 08:48 General: Appears in no apparent distress. comfortable, well groomed, Behavior is calm, ph cooperative, appropriate for age. Pain: Complains of pain in anterior aspect of left shoulder. Pain: Complains of pain in left sternocleidomastoid Pain: Complains of pain in face. Neuro: Level of Consciousness is awake, alert, obeys commands, Oriented to person, place, time, situation, Denies dizziness. Cardiovascular: Capillary refill < 3 seconds in bilateral fingers Patient's skin is warm and dry. Rhythm is irregular. Respiratory: Airway is patent Respiratory effort is even, unlabored, Respiratory pattern is regular, symmetrical. GI: No signs and/or symptoms were reported involving the gastrointestinal system. Derm: Skin is fragile, is thin, Skin is pink, warm \T\ dry. Bruising that is dark purple, on anterior aspect of left shoulder. Musculoskeletal: Circulation, motion, and sensation intact. Range of motion: intact in all extremities. Injury Description: Abrasion sustained to nose and left eye. 08:52 Cardiovascular: Edema is 4+ to left midcalf, left ankle, left foot, right midcalf, ph right ankle and right foot skin reddened and dry, pt reports hx of lymphedema. 09:08 Reassessment: Patient appears in no apparent distress at this time. Patient and/or ph family updated on plan of care and expected duration. Pain level reassessed. Patient is alert, oriented x 3, equal unlabored respirations, skin warm/dry/pink. Pt returned from radiology, c-collar remains in place,daughter at bedside. 10:03 Reassessment: Patient appears in no apparent distress at this time. Patient and/or ph family updated on plan of care and expected duration. Pain level reassessed. Patient is alert, oriented x 3, equal unlabored respirations, skin warm/dry/pink. Vital Signs: 08:54 BP 165 / 70; Pulse 83; Resp 18; Temp 97.9; Pulse Ox 97% on R/A; Weight 92.99 kg; Height ph 5 ft. 6 in. (167.64 cm); 10:03 BP 149 / 69; Pulse 72; Resp 18; Temp 97.9; Pulse Ox 97% on R/A; ph 08:54 Body Mass Index 33.09 (92.99 kg, 167.64 cm) ph [place] Coma Score: 08:54 Eye Response: spontaneous(4). Verbal Response: oriented(5). Motor Response: obeys ph commands(6). Total: 15. 10:03 Eye Response: spontaneous(4). Verbal Response: oriented(5). Motor Response: obeys ph commands(6). Total: 15. Trauma Score (Adult): 08:45 Eye Response: spontaneous(1); Verbal Response: oriented(1); Motor Response: obeys jh7 commands(2); Systolic BP: > 89 mm Hg(4); Respiratory Rate: 10 to 29 per min(4); [place] Score: 15; Trauma Score: 12 08:54 Eye Response: spontaneous(1); Verbal Response: oriented(1); Motor Response: obeys ph commands(2); Systolic BP: > 89 mm Hg(4); Respiratory Rate: 10 to 29 per min(4); [place] Score: 15; Trauma Score: 12 10:03 Eye Response: spontaneous(1); Verbal Response: oriented(1); Motor Response: obeys ph commands(2); Systolic BP: > 89 mm Hg(4); Respiratory Rate: 10 to 29 per min(4); Gregorio Score: 15; Trauma Score: 12 ED Course: 08:46 Patient arrived in ED. ph 08:46 Teena Cox FNP [facility]. jh7 08:46 Andre Tolliver MD is Attending Physician. jh7 08:48 Triage completed. ph 08:55 Arm band placed on Patient placed in an exam room, on a stretcher. ph 08:55 Patient has correct armband on for positive identification. Bed in low position. Call ph light in reach. Side rails up X2. Client placed on continuous cardiac and pulse oximetry monitoring. NIBP monitoring applied. Door closed. Noise minimized. Warm blanket given. 08:56 Patient maintains SpO2 saturation greater than 95% on room air. Thermoregulation: warm ph blanket given to patient. 08:58 CT Head C Spine In Process Unspecified. EDMS 08:59 Facial Bones W/ Mpr In Process Unspecified. EDMS 09:08 Vianca Campbell, RN is Primary Nurse. ph 09:12 XRAY Shoulder LEFT 2 view In Process Unspecified. EDMS 09:12 XRAY Chest (1 view) In Process Unspecified. EDMS 10:04 No provider procedures requiring assistance completed. Patient did not have IV access ph during this emergency room visit. Administered Medications: 10:01 Drug: Tylenol 650 mg Route: PO; ph 10:04 Follow up: Response: No adverse reaction ph Medication: 10:19 VIS not applicable for this client. ph Intake: 10:19 PO: 250ml; Total: 250ml. ph Output: 10:19 Urine: 0ml; Total: 0ml. ph Outcome: 09:41 Discharge ordered by MD. calvin 10:18 Discharged to home via wheelchair, with family. ph 10:18 Condition: good 10:18 Discharge instructions given to patient, family, Instructed on discharge instructions, follow up and referral plans. Demonstrated understanding of instructions, follow-up care. 10:19 Patient's length of stay was not longer than 2 hours. ph 10:19 Patient left the ED. ph Signatures: Dispatcher [employer] EDVianca Thomas, AZRA RN Teena Holt FNP FNP jh7 Corrections: (The following items were deleted from the chart) 08:48 08:46 Trauma Activation: Alert; ED Physician Sharee notified at 08:46, ph arrived at 08:46; General Surgeon notified at 08:46; Radiology notified at 08:46; Respiratory notified at 08:46; Lab notified at 08:46 ph
[2022-09-16] MEDS ORDERED: ACETAMINOPHEN 325 MG TABLET ONE (09:56)
[2022-09-16 10:24] VITALS: TEMP 97.9; O2SAT 97
[2022-09-16 10:25] VITALS: BP 149/69
== END 2022-09-16 10:19 | disposition home or self-care (01) ==
LOC: ER 08:32
DX: S00.81XA Abrasion of other part of head, initial encounter (principal); S00.31XA Abrasion of nose, initial encounter; S40.012A Contusion of left shoulder, initial encounter; W18.30XA Fall on same level, unspecified, initial encounter; I48.91 Unspecified atrial fibrillation; Z79.01 Long term (current) use of anticoagulants; I50.9 Heart failure, unspecified; Z88.0 Allergy status to penicillin; Z88.1 Allergy status to other antibiotic agents; Z88.3 Allergy status to other anti-infective agents; Z88.7 Allergy status to serum and vaccine; Z88.8 Allergy status to other drugs, medicaments and biological substances; Z91.040 Latex allergy status; Z91.048 Other nonmedicinal substance allergy status
CPT/HCPCS: 70450; 70486; 71045; 72125; 76377

== ENCOUNTER 2022-11-19 19:01 | Inpatient (IN) | payer OTHER ==
[2022-11-19 19:31] LABS: SARS-CoV-2 Antigen Rapid Res Negative (Negative)
--- OUTSIDE RECORDS SUMMARY | 2022-11-19 19:54 | XMS REPORT | Continuity of Care Document ---
:1935 Author Organization [facility] t Address [address] [place] [address] Care Team Providers Name Role Phone CHRISS BOWLES Attending Clinician Unavailable CHRISS BOWLES Admitting Clinician Unavailable NOHEMY DRUMMOND Admitting Clinician Unavailable Payers Payer Name Policy Type Policy Number Effective Date Ex[facility] Date [facility] [id number] 2018 ADV 00:00:00 Problems Condition Condition Condition [...] 00:00: Medical 00 Center Gucci Propensi Active 2020[facility] adverse 00:00: Medical reaction 00 Center s Azithrom Propensi Active 2019- [facility] ycin ty to 2-02 [facility] adverse 00:00: Medical reaction 00 Center s Latex Propensi Active Rash 2019- [facility] ty to 2- [facility] adverse 00:00: Medical reaction 00 Center s Neomycin Propensi Active 2019- [facility] ty to 2-02 [facility] adverse 00:00: Medical reaction 00 Center s Neomycin Propensi Active 2019-[address] [facility] [address] -Bacitra ty to - [facility] adverse 00:00: Medical ymyxnb reaction 00 Center s Penicill Propensi Active 2019- [facility] ins ty to - [facility] adverse 00:00: Medical reaction 00 Center s NO KNOWN Allergy Active [facility] Social History Social Habit Start Date Stop Date Quantity Comments Source Alcohol intake 2020-09-12 2020-09-12 Ex-drinker [facility] 00:[facility]00 00[facility]00:00 [facility]finding[facility] Sex Assigned At [address] [facility] 00:00:00 00:00:00 [facility] Medications Ordered Filled Start Stop Current [...] daily with Me dical tablet 23 dinner. [place] potassium 2019-09 Yes 30meq Q.5D Take [address] [facility] chloride 2-17 mEq by [facility] (KLOR-CON) 10:54: mouth 2 Medi omi 10 MEQ CR 23 (two) Center tablet times daily. potassium 2019-09 Yes 20meq Q.5D Take [address] [facility] chloride 2-17 mEq by [facility] (KLOR-CON) 10:54: mouth 2 Medi omi 20 mEq 23 (two) Center packet times daily . rivaroxaban 2019-09 Yes Take by [facility] (XARELTO) 2-17 mouth [facility] 20 mg Tab 10:54: daily with Me dical tablet 23 dinner. [place] potassium 2020-1 Yes 30meq Q.5D Take [address] [facility] [...] Medic al 40 MG 16 Center tablet fluticasone 2019-09 Yes 2{puff} Q.5D Inhale 2 [...] Planned Date Details Comments Source Future Scheduled 2022-09-[address] [facility] Test 00:00:00 (12+) [code = Medical Center DEPRESSION SCREENING (12+)] Future Scheduled 2022-09-27 FALLS RISK SCREENING [facility] 00:00:00 [code = FALLS RISK Medical C enter SCREENING] Future Scheduled 2022-05-28 INFLUENZA VACCINE (#1) [facility] 00:00:00 [code = INFLUENZA Medical Ce nter VACCINE (#1)] Future Scheduled 2022-05-28 INFLUENZA VACCINE (#1) C [...] FIRST YEAR if no IPPE)] Future Scheduled 2019-09-[address] [facility] 00:00:00 WELLNESS (YEAR 2 or Medical Center FIRST YEAR if no IPPE) [code = MEDICARE ANNUAL WELLNESS (YEAR 2 or FIRST YEAR if no IPPE)] Future Scheduled 1999 PNEUMOCOCCAL 65+ YRS [facility] Test 00:00:00 (1 - PCV) [code = Medical Ce nter PNEUMOCOCCAL 65+ YRS (1 - PCV)] Future Scheduled 1999 PNEUMOCOCCAL 65+ YRS [facility] Test 00:00:00 (1 - PCV) [code = Medical Ce nter PNEUMOCOCCAL 65+ YRS (1 - PCV)] Future Scheduled 1984-01-14 SHINGLES VACCINES ([address] [facility] Test 00:00:00 of 2) [code = SHINGLES Medic al Center VACCINES (1 of 2)] Future Scheduled 1984-01-14 SHINGLES VACCINES ([address] [facility] 00:00:00 of 2) [code = SHINGLES Medic al Center VACCINES (1 of 2)] Future Scheduled 1953 DTAP/TDAP/TD VACCINES [facility] 00:00:00 (1 - Tdap) [code = Medical C enter DTAP/TDAP/TD VACCINES (1 - Tdap)] Future Scheduled 1953 DTAP/TDAP/TD VACCINES [facility] 00:00:00 (1 - Tdap) [code = Medical C enter DTAP/TDAP/TD VACCINES (1 - Tdap)] Future Scheduled [address] [facility] 00:00:00 Counseling and Medical Cente r Screening (12+) [code = Tobacco Cessation Counseling and Screening (12+)] Future Scheduled [address] [facility] Test 00:00:00 Counseling and Medical Cente r Screening (12+) [code = Tobacco Cessation Counseling and Screening (12+)] Future Scheduled 1934 COVID-19 VACCINE (#1) [facility] 00:00:00 [code = COVID-[address] VACCINE (#1)] Future Scheduled 1934 COVID-19 VACCINE (#1) [facility] 00:00:00 [code = COVID-[address] VACCINE (#1)] Encounters Start End Encounter Admission Attending Care Care Encounter Source Date/Time Date/Time Type Type Clinicians Facility Department ID 2021-07-04 Inpatient ER KARLYELINA Surgery [id number] [facility] 18:26:59 CHRISS 2020-09-12 2020-09-12 Out[facility] [id number] [facility] 00:00:00 00:00:00 CHRISS Results Test Description Test Time Test Comments Results Result Sourc e Comments TISSUE EXAM 2020-09-06 Surgical Pathology 18:38:00 Report Case: [id number] Authorizing Provider: Chriss Bowles, Collected: 08/28/2020 05:01 PM Ordering Location: [facility] Received: 08/29/2020 08:23 AM PERIOPERATIVE SERVICES Pathologist: Gerber Caro MD Specimen: Plaque, Left carotid plaque ARTERY, LEFT CAROTID, ENDARTERECTOMY:CALCIFI C ATHEROSCLEROTIC PLAQUE WITH INTIMAL ULCERATION AND FIBRIN LUMINAL THROMBOSIS Signing Pathologist Direct Phone Line: [phone] ally signed by Gerber Caro MD on 09/06/2020 at 6:38 [id number]; [id number] artery disease without angina pectoris, unspecified vessel or lesion type, unspecified whether hamilton or transplanted heart PlaqueReceived in formalin labeled the patient's name, accession number and "left carotid plaque" is a 3.0 x 0.9 x 0.5 cm aggregate of clement-yellow tubular, focally calcified plaque. Sock Mender sections are submitted in A1 following decalcification.LEAH [...] NOT 1092) ACCURATE CRE ATININE CLEARANCE IN MO EDICTING GLOMERULAR FILT RATION RATE. ESTIMATED GFR IS NOT APPLICABLE FOR DIALYSIS PATIENTS. Guest Relations Associate ID - [id number] 06:30:00 Test Item Value Reference Range Interpretation Comments MAGNESIUM (BEAKER) (test code = 2.0 mg/dL 1.6-2.6 627) Guest Relations Associate ID - ADMINCBC (HEMOGRAM ONLY)2020-08-30 05:42:00 Test [...] (BEAKER) (test code = 413) BASIC METABOLIC [id number] 07:05:00 Test Item Value Reference Range Interpretation [...] S NOT APPLICABLE FOR DIALYSIS PATIEN TS. Guest Relations Associate ID - SANDRA [id number] 07:05:00 Test Item Value Reference Range Interpretation Comments MAGNESIUM (BEAKER) (test code = 2.2 mg/dL 1.6-2.6 627) Guest Relations Associate ID - SANDRA MCBC (HEMOGRAM ONLY)2020-08-29 06:13:00 [...] 0-0 (BEAKER) (test code = 413) SARS-COV2/RT-PCR ([facility])2020-08-28 18:57:00 Test Item Value Reference Range Interpretation Comments SARS-COV2/RT-PCR (test Negative Not Detected, Negative, code = 6154773) See external report for linked test SARS-COV-2 PERFORMING LAB [facility] (test code = 5412200) Negative result for this test determines that [...] of the Act.Fact Sheet for Healthcare Prov iders:https://www.MYOS[employer]sites/default/files/product/documents/Fact_Sheet_HC _Euaryvwbh_Uuld_KRUK-TqU-8.pdfFact Sheet for Healthcare Patients:https://www.MYOS.[employer]sites/default/files/product/docume nts/Bavk_Utwjy_Ytyafxzl_Uexw_KEFN-QcJ-8.pdfPerforming Laboratory:[facility] [place] [address]
[2022-11-19] MEDS ORDERED: FUROSEMIDE 40 MG/4 ML VIAL IV ONE (20:00)
[2022-11-19 20:41] LABS: Absolute Lymphocytes (CBC) 0.7 K/uL (0.7-4.9); Hematocrit 31.2 % (36.0-45.0); Lymphocytes % 18.2 % (15.3-44.8); MCV 84.7 fL (80-100); MPV 7.2 fL (7.6-11.3); RBC Red Blood Cell Count 3.68 M/uL (3.86-4.86)
[2022-11-19] MEDS: DULERA 200/5 (MOMETASONE/FORMOTEROL) INHALER IH SCH (21:00)
[2022-11-19 21:10] LABS: Albumin 3.4 g/dL (3.4-5.0); Bilirubin Total 1.1 mg/dL (0.2-1.0); Magnesium 2.4 mg/dL (1.6-2.4); Potassium 4.3 mmol/L (3.5-5.1); Protein, Total 6.8 g/dL (6.4-8.2); Thyroid Stimulating Hormone 1.21 uIU/mL (0.358-3.740)
--- NOTE | 2022-11-19 22:08 | HP ---
Date of Admission: 11/19/2022 Chief Complaint: Weight gain, shortness of breath, feeling weak and tired, leg swelling, and poor appetite. History Of Present Illness: This is an 87-year-old very pleasant female patient with chronic diastolic heart failure, who takes her medications on a regular basis and has multiple chronic medical problems, who came into office today with her daughter and she was in the wheelchair and she lives at home by herself. The patient reported that for last 4 to 5 days, she was having increasing problem with feeling weak, very tired, short of breath, reduced appetite and has increased sleepiness throughout the day. She also reports having dry cough. She feels like her whole abdomen is swollen. Has some left upper quadrant abdominal pain and worsening of bilateral leg swelling. The patient sleeps in a recliner with her head elevated. After the patient was evaluated at office, she was admitted to the hospital. Because of her weakness, we were not able to check her weight at office today and we will check her weight once she gets admitted to the hospital. Allergies: LISINOPRIL CAUSING THROAT CLOSING TYPE OF SENSATION, AMOXICILLIN CAUSING THROAT SWELLING, SULFA CAUSING NAUSEA, ERYTHROMYCIN CAUSING TONGUE COATING TYPE OF SIDE EFFECT, STATIN CAUSING MYALGIA, ADHESIVE TAPE CAUSES REDNESS OF THE SKIN, LATEX CAUSING REDNESS OF SKIN, LEVAQUIN CAUSES HIVES, AND BACITRACIN/NEOMYCIN/POLYMYXIN CAUSES REDNESS OF SKIN. Review of Systems: Constitutional: As mentioned above. GI: As mentioned above. Respiratory: As mentioned above. Cardiovascular: As mentioned above. All other systems reviewed and negative. Medications: Carvedilol 25 mg 2 times a day, fluticasone nasal spray 1 spray each nostril 2 times a day, Advair inhaler 1 puff 2 times a day, hydralazine 10 mg takes 2 tablets 2 times a day, furosemide 40 mg takes 1 tablet 2 times a day, rosuvastatin 5 mg daily, potassium chloride 10 mEq 2 times a day, Xarelto 15 mg daily, nisoldipine 8.5 mg daily, pantoprazole 40 mg daily, lorazepam 0.5 mg daily, and Claritin 10 mg daily. Past Medical History: Significant for allergic rhinitis, hypothyroidism, pulmonary hypertension, hyperlipidemia, chronic diastolic heart failure, hypertension, paroxysmal atrial fibrillation, peripheral vascular disease, carotid artery stenosis, lymphedema of legs, gastroesophageal reflux disease, diverticulosis, left breast cancer, chronic leg edema, lumbar spinal stenosis, osteoarthritis at multiple sites, anxiety, and insomnia. Past Surgical History: Thyroidectomy, right-sided lumpectomy, carotid artery endarterectomy on the left side in 2019, hysterectomy, removal of basal cell carcinoma, and squamous cell carcinoma. Family History: Father had congestive heart failure and hypertension. Mother had Alzheimer disease and hypertension. Social History: Negative for smoking. Negative for alcohol use. Physical Examination: Vital Signs: Blood pressure 138/71, temperature 97.9, pulse 86, respiratory rate 18, height is 66 inches, weight 229 pounds, and oxygen saturation 100%. General: Awake, alert, oriented, not in distress. HEENT: Head atraumatic, normocephalic. Conjunctivae nonerythematous. Sclerae white. Mouth, no thrush or edema noted. Ears/Nose, no mass, lesion, discharge noted. Neck: Shows presence of JVD, otherwise no evidence of any mass or lymph node enlargement. Neck is supple. Lungs: Bilateral good equal air entry. Diminished air entry with presence of rales noted in both lung bases. Heart: Normal heart sounds, no murmur or gallop. Abdomen: The patient has tenderness in left upper quadrant of abdomen. Her abdominal skin has significant amount of edema. Bowel sounds normoactive. No hepatosplenomegaly. No bruit. Extremities: The patient has great pedal edema involving all the way from groin to her feet. Skin: No rash, ulcer, cellulitis. Lymphatics: No lymph node enlargement in neck, supraclavicular, infraclavicular region. Neuro: No focal neurological deficit. Chest: Unremarkable. External Genitalia: Deferred. Rectal: Deferred. Laboratory Data: WBC 3.9, hemoglobin 10.2, platelets 230. Sodium 137, potassium 4.3, chloride 100, bicarb 32, BUN 29, creatinine 1.84, glucose 123. Liver function tests unremarkable, BNP 9477. COVID-19 test negative. Chest x- ray pending. Impression: 1. Chronic diastolic heart failure, with acute exacerbation. 2. Lymphedema, both legs. 3. Hypertension. 4. Hyperlipidemia. 5. Paroxysmal atrial fibrillation. 6. Peripheral vascular disease. 7. Bilateral carotid artery stenosis. 8. Gastroesophageal reflux disease. 9. Diverticulosis. 10. Osteoarthritis, multiple sites. 11. Hypothyroidism. 12. Allergic rhinitis. Plan: Admit the patient to hospital for further evaluation and management of this problem. The patient is appropriate for inpatient and is expected to spend 2 midnights in hospital. I have discussed with her regarding her advanced directives and as per the patient's wishes DNR order will be written in the chart. We will start her on Lasix 40 mg IV 2 times a day, first dose will be given tonight. Monitor intake, output and daily weight. We will replace electrolytes per electrolyte replacement protocol as it becomes necessary. We will get an echo with Doppler and consult Cardiology. Fall precaution was ordered and we will consult physical therapist. For hypertension, we will continue her antihypertensive medication, monitor blood pressure, and adjust medication as it becomes necessary. For hyperlipidemia, we will continue her statin therapy, which is rosuvastatin per order. For hypothyroidism, we will continue levothyroxine and for her gastroesophageal reflux disease, we will continue her pantoprazole. Details and plan of treatment discussed with the patient and her daughter. I will see her tomorrow morning for followup. EHSAN/MODL Voice ID: [id number] [email or web address]
[2022-11-19] MEDS ORDERED: POLYETHYL GLY 3350 17 GM/DOSE PO PRN (22:18)
[2022-11-19] MEDS: LORAZEPAM 0.5 MG TABLET PO SCH (22:50)
[2022-11-20] MEDS: PANTOPRAZOLE 40MG TABLET PO SCH (06:35)
[2022-11-20] MEDS: DULERA 200/5 (MOMETASONE/FORMOTEROL) INHALER IH SCH ×2 (09:00→21:45)
[2022-11-20] MEDS ORDERED: HYDRALAZINE HCL 10 MG TABLET PO SCH (09:00)
--- NOTE | 2022-11-20 09:12 | RAD REPORT ---
EXAM DESCRIPTION: [facility] Single View11/20/2022 8:35 am CLINICAL HISTORY: CHF COMPARISON: 09/16/2022 and 08/26/2020 TECHNIQUE: Portable AP view of the chest. FINDINGS: Elevation of the right hemidiaphragm. Right basilar streaky airspace opacities. Probable s mall right effusion. No pneumothorax. The cardiomediastinal contours are unchanged. IMPRESSION: Right basilar streaky airspace opacities, could reflect atelectasis or early pneumonia. Small right pleural effusion.
[2022-11-20] MEDS: carvediloL 25 MG TAB PO SCH ×2 (10:18→21:45)
[2022-11-20] MEDS: POTASSIUM CL SA 10 MEQ TAB PO SCH ×2 (10:18→21:45)
[2022-11-20] MEDS: FUROSEMIDE 40 MG/4 ML VIAL IV SCH ×2 (10:19→17:15)
--- NOTE | 2022-11-20 13:01 | RAD REPORT ---
EXAM DESCRIPTION: CT - Abdomen Pelvis Wo Contrast - 11/20/2022 11:07 am CLINICAL HISTORY: Abdominal pain /left upper quadrant pain COMPARISON: 2013 TECHNIQUE: Computed axial tomography of the abdomen and pelvis was obtained. IV contrast not request ed. Oral contrast given All CT scans are performed using dose optimization technique as appropriate and may include automated exposure control or mA/KV adjustment according to patient size. FINDINGS: The evaluation of solid organs, and vessels is limited secondary to the lack of contrast administration. A small right pleural effusion. Diffuse edema within the subcutaneous tissues. Probable gallstone. Liver, spleen, adrenals and kidneys grossly normal Trace amount of ascites. No evidence of diverticulitis. Hysterectomy. No adnexal mass is noted. Enlargement of the IVC at the level of the kidneys and superiorly. IMPRESSION: Enlargement of the IVC. This may be secondary to thrombus. An ultrasound may be helpful. If it is nondiagnostic CT with contrast should be diagnostic using an IVC protocol. Probable gallstone. Diffuse edema within the subcutaneous tissues
--- NOTE | 2022-11-20 13:35 | PN ---
Date of Progress Note: 11/20/2022 Subjective: The patient was seen this morning for followup. No new complaints or problems reported by her, and her daughter was with her at bedside. The patient did sleep last night and overall she f eels little better this morning compared to yesterday. Objective: Vital Signs: Reviewed. HEENT: Unremarkable. Lungs: Bilateral good equal air entry. Diminished air entry in the lung bases with some rales. Not using any accessory muscles of respiration. Heart: Sounds normal. Abdomen: Soft. Bowel sounds normal. No guarding, rigidity, tenderness, distention. The patient de jesus s edema of abdominal wall and tenderness that she had yesterday in left upper quadrant was not presen t today. Extremities: Bilateral leg edema unchanged from yesterday. Laboratory Data: No new labs today. Yesterday's lab results reviewed. Impression: 1.Congestive heart failure, chronic, diastolic, with acute exacerbation. 2.Lymphedema, legs. 3.Atrial fibrillation, paroxysmal. 4.Chronic anticoagulation therapy. 5.Hypertension. 6.Chronic kidney disease, stage 4. 7.Anemia due to chronic kidney disease. Plan: We will go ahead and continue carvedilol 12.5 mg 2 times a day, which is a lower dose compared to her home use, which is 25 mg 2 times a day. We will continue Lasix 40 mg IV 2 times a day, monit or intake, output, daily weight. The patient has 2 different weights recorded yesterday 229 and 299, and I have advised the charge nurse to weigh the patient again this morning and document her weight from today. We will monitor her daily weight. Continue Xarelto. The patient will have an echo with Doppler today. We will also get a CAT scan of abdomen without IV contrast today. We will repeat bl ood work tomorrow. Get a chest x-ray today, and details and plan of treatment discussed with her. I will see her tomorrow for followup. EHSAN/MODL Voice ID: [id number] Report ID: [id number]
--- NOTE | 2022-11-20 16:56 | CON ---
Date of Consultation: 11/20/2022 Reason For Consultation: Congestive heart failure. History Of Present Illness: An 87-year-old female with chronic diastolic heart failure, on Lasix 40 mg twice a day at home. Has history of dyslipidemia, hypertension, paroxysmal atrial fibrillation, p eripheral vascular disease, diastolic heart failure, carotid stenosis, acid reflux, presented with si gnificant lower extremity edema that has been worsening over a long time and became significantly wor se lately to the point that she cannot lift her leg anymore and she has significant shortness of claudia th and orthopnea. No chest pain. No nausea, vomiting, diarrhea. Also seen by Dr. Mir who admitted her for IV diuresis. Past Medical History: As outlined above in the HPI. Medications: Refer to reconciliation sheet for detailed list. Allergies: ROSAURA INHIBITORS, NEOMYCIN, AND BACITRACIN WELL. Family History: No premature coronary artery disease or cancer. Social History: She does not smoke or drink. Does not use any drugs. Review of Systems: All systems reviewed and they were negative except what mentioned in HPI. Physical Examination: Vital Signs: Reviewed. Head and Neck: Pupils are equal, reactive to light. Intact eye movements. Positive JVD. No cervic al lymphadenopathy. Neck is supple. Thyroid is not enlarged. Lungs: Decreased breathing sounds with faint crackles in the bases. No accessory muscle use or musc le retraction. Heart: Irregular with aortic systolic murmur. Abdomen: Soft, nontender. Bowel sounds positive. No organomegaly. No masses or hernia. No rigidi ty or rebound. Extremities: More than 4+ edema bilaterally all the way to her thighs. Neurologic: Alert, awake, oriented x3. No acute focal deficits appreciated. Lymph Nodes: No cervical or axillary lymphadenopathy. Investigations: BUN is 29, creatinine 1.89, and her baseline last year was normal, and her hemoglobi n is 10.2. Assessment And Plan: 1.Acute on chronic diastolic heart failure exacerbation. She has massive edema. This patient will need aggressive and prolonged diuresis likely with Lasix, carefully monitoring BUN and creatinine and electrolytes, and obtain an echocardiogram. 2.Hypertension. Blood pressure is normal today. We may need to hold the hydralazine to allow for m ore diuresis. 3.Atrial fibrillation. Heart rate is controlled. Continue current management including Coreg and X arelto. Thank you for the consult. SR/MODL Voice ID: [id number] Report ID: [id number]
[2022-11-20] MEDS: RIVAROXABAN 15 MG TABLET PO SCH (17:15)
[2022-11-20] MEDS: LORAZEPAM 0.5 MG TABLET PO SCH (21:45)
[2022-11-21] MEDS: PANTOPRAZOLE 40MG TABLET PO SCH (06:05)
[2022-11-21 08:21] LABS: Absolute Lymphocytes (CBC) 0.7 K/uL (0.7-4.9); Hematocrit 28.8 % (36.0-45.0); Lymphocytes % 19.8 % (15.3-44.8); MCV 86.8 fL (80-100); MPV 7.5 fL (7.6-11.3); RBC Red Blood Cell Count 3.32 M/uL (3.86-4.86)
[2022-11-21 08:38] LABS: Magnesium 2.6 mg/dL (1.6-2.4); Potassium 4.1 mmol/L (3.5-5.1)
[2022-11-21] MEDS: FUROSEMIDE 40 MG/4 ML VIAL IV SCH ×3 (09:00→21:26)
[2022-11-21] MEDS: DULERA 200/5 (MOMETASONE/FORMOTEROL) INHALER IH SCH ×2 (09:01→21:27)
[2022-11-21] MEDS: POTASSIUM CL SA 10 MEQ TAB PO SCH ×2 (09:01→21:26)
[2022-11-21] MEDS: carvediloL 6.25 MG TAB PO SCH ×2 (09:09→21:00)
--- NOTE | 2022-11-21 13:05 | PN ---
Date of Progress Note: 11/21/2022 Subjective: The patient was seen this morning for followup. She was sitting at bedside. No new com plaints or problems reported. She has not seen any improvement in her leg swelling. Denies any shor tness of breath this morning when she was sitting. She was on supplemental oxygen. Objective: Vital Signs: Reviewed. HEENT: Unremarkable. Lungs: Bilateral good equal air entry. Diminished air entry in the lung bases with some rales. Heart: Sounds normal. Abdomen: Soft. Bowel sounds normal. No guarding, rigidity, tenderness, distention. Extremities: Extensive edema. Both lower extremity remains unchanged. Laboratory Data: CBC results are ready, results reviewed. Chemistry result pending. CAT scan of e abdomen done yesterday, result reviewed with the patient, shows dilated IVC. Echocardiogram result pending. Impression: 1.Congestive heart failure, chronic, diastolic, with acute exacerbation. 2.Lymphedema, bilateral legs. 3.Chronic kidney disease, stage 4. 4.Hypertension. 5.Paroxysmal atrial fibrillation. 6.Chronic anticoagulation therapy. Plan: We will go ahead and continue current Xarelto which is 15 mg daily. The patient is on Lasix 4 0 mg IV 2 times a day. Instead of that, we will increase it to 3 times a day. Monitor intake, outpu t, daily weight. The patient has not lost any weight so far during this hospitalization. We will re duce dose of carvedilol on basis of her blood pressure reading from 12.5 mg to 6.25 mg 2 times a day. Follow up on echocardiogram results and I did discuss details regarding CAT scan finding with the p atient. We will wait for the echocardiogram as she may have pulmonary hypertension. Even if she has any thrombosis in the inferior vena cava, she is already on chronic anticoagulation therapy and noth ing else will need to be done and she is not a candidate for any contrast study with CAT scan or MRI because of her kidney dysfunction. EHSAN/MODL Voice ID: [id number] Report ID: [id number]
[2022-11-21] MEDS: RIVAROXABAN 15 MG TABLET PO SCH (17:23)
[2022-11-21] MEDS: LORAZEPAM 0.5 MG TABLET PO SCH (21:26)
[2022-11-22] MEDS: PANTOPRAZOLE 40MG TABLET PO SCH (06:27)
[2022-11-22] MEDS: FUROSEMIDE 40 MG/4 ML VIAL IV SCH ×3 (08:40→21:17)
[2022-11-22] MEDS: POTASSIUM CL SA 10 MEQ TAB PO SCH ×2 (08:40→21:17)
[2022-11-22] MEDS: carvediloL 6.25 MG TAB PO SCH ×3 (08:40→21:00)
[2022-11-22] MEDS: DULERA 200/5 (MOMETASONE/FORMOTEROL) INHALER IH SCH ×2 (09:30→21:18)
--- NOTE | 2022-11-22 10:19 | PN ---
Date of Progress Note: 11/22/2022 Subjective: The patient was seen in the morning for followup. She was sitting at bedside. Her daug hter was with her and she denies any new complaints. She remains on oxygen at 2 L/minute nasal cannu la. Physical Examination: Vital Signs: Reviewed today. Temperature this morning 98.8, pulse 72, respiratory rate 20, blood pre ssure 116/50, oxygen saturation 95% on 2 L nasal cannula oxygen and her weight was 228 pounds. HEENT: Unremarkable. Lungs: Bilateral good equal air entry with presence of diminished air entry and some crackles in the lung bases unchanged. Heart: Sounds normal. Abdomen: Soft. Bowel sounds normal. No guarding, rigidity, tenderness, distention. Extremities: Extensive edema of both lower extremities remains unchanged. Laboratory Data: There were no new labs today. Yesterday's lab results reviewed. Impression: 1.Congestive heart failure, chronic, diastolic, with acute exacerbation. 2.Lymphedema, legs. 3.Chronic kidney disease, stage 4. 4.Anemia due to chronic kidney disease. 5.Hypertension. 6.Paroxysmal atrial fibrillation. 7.Chronic anticoagulation therapy. Plan: We will go ahead and continue current Lasix. The patient's carvedilol will be kept on hold if systolic blood pressure is less than 120 as nurse contacted me last night and this instruction was hernandez hodge to her. We will continue Lasix 40 mg IV every 8 hours. Monitor intake, output, daily weight. We will repeat blood work tomorrow morning and echocardiogram result i s pending. Continue Xarelto. EHSAN/MODL Voice ID: [id number] Report ID: [id number]
[2022-11-22] MEDS: RIVAROXABAN 15 MG TABLET PO SCH (16:45)
[2022-11-22] MEDS: LORAZEPAM 0.5 MG TABLET PO SCH (21:17)
[2022-11-22 21:26] VITALS: BMI 36.8
[2022-11-23 05:14] LABS: Hematocrit 33.4 % (36.0-45.0); Lymphocytes % 20.7 % (15.3-44.8); MCV 86.5 fL (80-100); MPV 7.2 fL (7.6-11.3); RBC Red Blood Cell Count 3.86 M/uL (3.86-4.86)
[2022-11-23 05:27] LABS: Magnesium 2.7 mg/dL (1.6-2.4); Potassium 3.8 mmol/L (3.5-5.1)
[2022-11-23 06:21] LABS: Blood Morphology Comment NOT SEEN (NOT SEEN); Platelet Estimate ADEQ
[2022-11-23] MEDS: PANTOPRAZOLE 40MG TABLET PO SCH (06:41)
[2022-11-23] MEDS ORDERED: METOLAZONE 2.5 MG TABLET PO SCH (08:00)
[2022-11-23] MEDS ORDERED: POTASSIUM CL SA 10 MEQ TAB PO ONE (09:00)
[2022-11-23] MEDS: carvediloL 6.25 MG TAB PO SCH ×2 (09:00→21:00)
[2022-11-23] MEDS ORDERED: acetaZOLAMIDE 250 MG TAB PO SCH (09:00)
--- NOTE | 2022-11-23 09:07 | ECHO ---
HEIGHT: 5 ft 6 in WEIGHT: 225 lb 0 oz DATE OF STUDY: 11/20/[address]: Aquilino Mir MD 2-DIMENSIONAL: YES M.MODE: YES DOPPLER: YES COLOR FLOW: YES TDS: NO PORTABLE: YES DEFINITY: NO BUBBLE STUDY: NO DIAGNOSIS: CONGESTIVE HEART FAILURE CARDIAC HISTORY: CATHERIZATION: SURGERY: PROSTHETIC VALVE: PACEMAKER: MEASUREMENTS (cm) DIASTOLIC (NORMALS) SYSTOLIC (NORMALS) IVSd 1.1 (0.6-1.2) LA Diam 4.6 (1.9-4.0) LVEF 60-65% LVIDd 4.4 (3.5-5.7) LVIDs 2.3 (2.0-3.5) %FS 47% LVPWd 1.0 (0.6-1.2) Ao Diam 2.9 (2.0-3.7) 2 DIMENSIONAL ASSESSMENT: RIGHT ATRIUM: ENLARGED LEFT ATRIUM: ENLARGED RIGHT VENTRICLE: NORMAL LEFT VENTRICLE: NORMAL TRICUSPID VALVE: SEVERE TR MITRAL VALVE: MILD MR PULMONIC VALVE: MILD PI AORTIC VALVE: MILD AI PERICARDIAL EFFUSION: NONE AORTIC ROOT: NORMAL LEFT VENTRICULAR WALL MOTION: NORMAL DOPPLER/COLOR FLOW: SEE BELOW. COMMENTS: 1. NORMAL LEFT VENTRICULAR EJECTION FRACTION 60-65% WITH NORMAL WALL MOTION. 2. BI-ATRIAL ENLARGEMENT. 3. SEVERE DIASTOLIC DYSFUNCTION, RESTRICTIVE. 4. SEVERE PULMONARY HYPERTENSION WITH RIGHT VENTRICULAR SYSTOLIC PRESSURE >80 mmHg. 5. SEVERE TRICUSPID REGURGITATION. 6. MILD AORTIC, MITRAL AND PULMONARY REGURGITATION. TECHNOLOGIST: Violeta ZENDEJAS
[2022-11-23] MEDS: LOPERAMIDE HCL 2 MG CAPSULE PO PRN ×2 (09:35→21:11)
[2022-11-23] MEDS: POTASSIUM CL SA 10 MEQ TAB PO SCH ×2 (09:36→21:11)
[2022-11-23] MEDS: DULERA 200/5 (MOMETASONE/FORMOTEROL) INHALER IH SCH ×2 (09:37→21:10)
[2022-11-23] MEDS: FUROSEMIDE 40 MG/4 ML VIAL IV SCH ×3 (09:37→21:11)
--- NOTE | 2022-11-23 10:52 | RAD REPORT ---
EXAM DESCRIPTION: - - 11/23/2022 10:25 am CLINICAL HISTORY: rule out NATALIE COMPARISON: Head C Spine Mpr Wo Con dated 09/16/2022; Carotid Artery Bilateral dated 08/02/2020 TECHNIQUE: Real-time sonographic evaluation of both carotid systems was performed. Doppler interroga tion was performed with waveform tracing bilaterally. FINDINGS: Normal high resistance waveforms are noted in both external carotid arteries. The common c arotid arteries and internal carotid arteries show normal low resistance waveforms. Calcified plaque is present at the carotid bifurcations. Mildly elevated peak systolic velocity at th e proximal right ICA with PSV of 134 cm/s. The velocities in the left mid and distal ICA are also mil dly elevated with velocities of 120 cm/second and 139 cm/sec respectively. Antegrade flow seen in both vertebral arteries. CAROTID STENOSIS REFERENCE USING NASCET CRITERIA: Mild - <50% stenosis. Moderate - 50-69% stenosis. Severe - 70-94% stenosis. Near occlusion - 95-99% stenosis. Occluded - 100% stenosis. IMPRESSION: Hard and soft plaque present at both carotid bifurcations. Moderate (50-69%) stenosis of the proximal right ICA. Moderate (50-69%) stenosis of the mid and distal left ICA. Prior left-sided carotid endarterectomy.
[2022-11-23] MEDS: RIVAROXABAN 15 MG TABLET PO SCH (16:41)
[2022-11-23] MEDS: LORAZEPAM 0.5 MG TABLET PO SCH (21:10)
--- NOTE | 2022-11-24 00:44 | PN ---
Date of Progress Note: 11/23/2022 Subjective: Seen by bedside. Still has significant lower extremity edema. She lost only 5 pounds o hung the weekend. Review of Systems: Has no chest pain. Has shortness of breath and lower extremity edema. No orthopnea. No nausea, vom iting, or diarrhea. All other systems reviewed. They were negative. Physical Examination: Vital Signs: Reviewed. Head and Neck: Pupils are equal, reactive to light. Intact eye movements. No cervical lymphadenopa thy. Neck is supple. Thyroid is not enlarged. Lungs: Decreased breathing sounds with crackles in bases. No accessory muscle use or muscle retract ion. Heart: Irregular. No extra sounds. Abdomen: Soft, nontender. Bowel sounds positive. No organomegaly. No masses or hernia. No rigidi ty or rebound. Extremities: 4+ more edema, with no improvement. Neurologic: Alert, awake, oriented x3. No acute focal deficits appreciated. Investigation: Labs were reviewed. Assessment And Recommendation: 1.Acute on chronic diastolic heart failure exacerbation with massive fluid retention. I recommend t o add metolazone 5 mg daily to her regimen. Her right ventricular systolic pressure is more than 80 on echo, and patient has significant fluid overload. Restrict salt in diet and monitor in and output . 2.Acute on chronic renal failure due to the elevated central venous pressure from significant fluid overload condition. Aggressive diuresis should help creatinine. SR/MODL Voice ID: [id number] Report ID: [id number]
[2022-11-24 04:23] LABS: Magnesium 2.5 mg/dL (1.6-2.4); Potassium 2.9 mmol/L (3.5-5.1)
[2022-11-24] MEDS ORDERED: NA CHLORIDE 0.9% 250 ML ONE (04:48)
[2022-11-24] MEDS: KCL 20 MEQ/100 mL IVPB 20 MEQ/100 ML BAG IV SCH ×3 (05:23→13:19)
[2022-11-24] MEDS: PANTOPRAZOLE 40MG TABLET PO SCH (06:02)
--- NOTE | 2022-11-24 08:14 | PN ---
Date of Progress Note: 11/23/2022 Subjective: The patient was seen this morning for followup. No new complaints or problems reported by her. Remains on nasal cannula oxygen at 2 L/minute. Vital signs reviewed. Intake and output rec ords reviewed. Her weight today is 225 pounds. Admission weight was 229 pounds. Physical Examination: HEENT: Unremarkable. Lungs: Bilateral good equal air entry. Clear to auscultation except diminished air entry in the marlen g bases with some rales noted. Not using any accessory muscles of respiration. Heart: Sounds normal. Abdomen: Soft. Bowel sounds normal. No guarding, rigidity, tenderness, distention. Extremities: Bilateral leg edema remains unchanged. Laboratory Data: White count 4.8, hemoglobin 10.7, platelets 242. Sodium 136, potassium 3.8, chlori de 98, bicarb 34, BUN 31, creatinine 1.57, glucose 98, magnesium 2.7. Carotid Doppler done today bibiana ws moderate stenosis bilaterally 50% to 69% and echocardiogram shows normal ejection fraction, but se mica diastolic dysfunction and severe pulmonary hypertension, and details were discussed with cardiol ogist. Impression: 1.Congestive heart failure, chronic, diastolic, with acute exacerbation. 2.Lymphedema, legs. 3.Chronic kidney disease, stage 4. 4.Hypertension. 5.Paroxysmal atrial fibrillation. 6.Chronic anticoagulation therapy. Plan: We will go ahead and continue current medications. Continue current Lasix 40 mg IV every 8 ho urs. We will continue acetazolamide per order. Replace potassium per protocol and we will go ahead and give 1 dose of metolazone today 2.5 mg. Monitor intake, output, daily weight. Repeat blood work tomorrow and I will see her tomorrow for followup. EHSAN/MODL Voice ID: [id number] Report ID: [id number]
[2022-11-24] MEDS: DULERA 200/5 (MOMETASONE/FORMOTEROL) INHALER IH SCH ×2 (08:32→21:34)
[2022-11-24] MEDS: FUROSEMIDE 40 MG/4 ML VIAL IV SCH ×3 (08:32→21:33)
[2022-11-24] MEDS: acetaZOLAMIDE 250 MG TAB PO SCH ×2 (08:33→21:33)
[2022-11-24] MEDS: POTASSIUM CL SA 10 MEQ TAB PO SCH ×2 (08:33→21:00)
[2022-11-24] MEDS: METOPROLOL TAR 25 MG TAB PO SCH ×2 (09:00→21:33)
[2022-11-24] MEDS: LOPERAMIDE HCL 2 MG CAPSULE PO PRN (09:56)
[2022-11-24] MEDS ORDERED: KCL 20 MEQ/100 mL IVPB 20 MEQ/100 ML BAG IV SCH (14:00)
[2022-11-24] MEDS: RIVAROXABAN 15 MG TABLET PO SCH (17:19)
--- NOTE | 2022-11-24 18:53 | PN ---
Date of Progress Note: 11/24/2022 Subjective: Seen by bedside. She lost about 10 pounds. Since yesterday, doing much better. Lower extremity edema is improved. Review of Systems: No chest pain, shortness of breath, orthopnea, cough, nausea, vomiting, diarrhea. No abdominal pain. No dysuria, polyuria, or urinary urgency. No skin rash, headache. All other systems reviewed and they were negative. Physical Examination: Vital Signs: Reviewed. Head and Neck: Pupils are equal, reactive to light. Intact eye movements. No JVD. No cervical lym phadenopathy. Neck is supple. Thyroid is not enlarged. Lungs: Clear to auscultation bilaterally. No rhonchi, wheezing, or crackles. No accessory muscle u se. Heart: Regular rate and rhythm with S3 gallop. Abdomen: Soft, nontender. Bowel sounds positive. No organomegaly. No masses or hernia. No rigidi ty or rebound. Extremities: No clubbing or cyanosis. 3 to 4+ pedal edema, improved compared to yesterday. Neurologic: Alert, awake, oriented x3. No acute focal deficits appreciated. Investigations: BUN 28, creatinine 1.3. Potassium 2.9. Assessment And Recommendations: 1.Acute on chronic diastolic heart failure exacerbation, significant fluid retention. The patient i s diuresing appropriately. Continue current management. Consider metolazone dosing on daily basis b ased on the response. 2.Acute on chronic renal failure. This is cardiorenal due to elevated central venous pressure and t his should improve with further diuresis. 3.Pulmonary hypertension, severe due to congestive heart failure. Continue diuretics. Cardiology w ill sign off on the case and I will be available for any further questions. I will follow the patient on an outpatient basis. This patient likely will require a few more days in the hospital to properly diurese. SR/MODL Voice ID: [id number] Report ID: [id number]
[2022-11-24] MEDS: LORAZEPAM 0.5 MG TABLET PO SCH (21:00)
[2022-11-24] MEDS ORDERED: POTASSIUM 25 MEQ EFFERV TAB PO ONE (21:00)
[2022-11-25 04:50] LABS: Potassium 3.1 mmol/L (3.5-5.1)
[2022-11-25] MEDS: PANTOPRAZOLE 40MG TABLET PO SCH (06:05)
--- NOTE | 2022-11-25 07:52 | PN ---
Date of Progress Note: 11/24/2022 Subjective: The patient was seen this morning for followup. She was feeling tired this morning as s he did not sleep well last night. Objective: Vital Signs: Reviewed. Her daughter was present with her. HEENT: Unremarkable. Lungs: Bilateral good equal air entry. Clear to auscultation. Diminished air entry in the lung bas es. Not using accessory muscles of respiration. Heart: Sounds normal. Abdomen: Soft. Bowel sounds normal. No guarding, rigidity, tenderness, or distention. The patient still has some edema of abdominal wall, but better than before. Extremities: Bilateral leg edema present, slightly better than last few days. Laboratory Data: Sodium 136, potassium 2.9, chloride 95, bicarb 36, BUN 28, creatinine 1.31, glucose 103, magnesium 2.5 mg. Impression: 1.Congestive heart failure, chronic, diastolic, with acute exacerbation. 2.Atrial fibrillation, paroxysmal. 3.Chronic anticoagulation therapy. 4.Hypertension. 5.Lymphedema, legs. Plan: We will go ahead and continue Lasix per order and continue Diamox as per order. Replace potas sium per electrolyte replacement protocol. We will not give metolazone today considering severe hypo kalemia. Her weight today is 220 pounds, so overall she has lost almost 9 to 10 pounds since her adm ission to the hospital. Renal function has shown improvement compared to the time of admission. We will continue to monitor intake, output, daily weight and monitor electrolytes and renal function, an d I will see her tomorrow for followup. Considering bicarb has gone up today, we will increase dose of Diamox and give her 250 mg 2 times a day starting today. EHSAN/MODL Voice ID: [id number] Report ID: [id number]
[2022-11-25] MEDS: FUROSEMIDE 40 MG/4 ML VIAL IV SCH ×3 (09:00→21:27)
[2022-11-25] MEDS: METOPROLOL TAR 25 MG TAB PO SCH ×2 (09:00→22:15)
[2022-11-25] MEDS ORDERED: POTASSIUM 25 MEQ EFFERV TAB PO ONE ×2 (09:00→22:30)
[2022-11-25] MEDS: DULERA 200/5 (MOMETASONE/FORMOTEROL) INHALER IH SCH ×2 (09:39→21:27)
[2022-11-25] MEDS: POTASSIUM CL SA 10 MEQ TAB PO SCH ×2 (09:40→22:22)
[2022-11-25] MEDS: acetaZOLAMIDE 250 MG TAB PO SCH ×2 (09:41→21:27)
[2022-11-25] MEDS: RIVAROXABAN 15 MG TABLET PO SCH (17:38)
[2022-11-25] MEDS: LORAZEPAM 0.5 MG TABLET PO SCH (21:00)
--- NOTE | 2022-11-25 23:40 | PN ---
Date of Progress Note: 11/25/2022 Subjective: The patient was seen this morning for followup. No new complaints or problems reported by the patient, she was sleeping. Her daughter was present with her at bedside. Objective: Vital Signs: Reviewed. HEENT: Unremarkable. Lungs: Clear to auscultation. Heart: Sounds normal. Abdomen: Soft. Bowel sounds normal. No guarding, rigidity, tenderness, or distention. Extremities: Bilateral leg edema present, unchanged from yesterday, but better compared to time of a dmission and skin examination over both lower extremities involving lower two thirds of both legs is pink and warm with improvement in leg swelling. The redness has not improved. Laboratory Data: Sodium 137, potassium 3.1, chloride 95, bicarb 38, BUN 25, creatinine 1.34, and glu cose 102. Impression: 1.Congestive heart failure, chronic, diastolic, with acute exacerbation. 2.Paroxysmal atrial fibrillation. 3.Chronic kidney disease stage 4. 4.Hypertension. Plan: We will go ahead and continue current Xarelto. Continue current diuretic therapy, oxygen repl acement therapy and we will monitor intake, output, and daily weight and I will see her tomorrow for followup. We will start empiric oral antibiotic, doxycycline for cellulitis of both lower extrem ities. EHSAN/MODL Voice ID: [id number] Report ID: [id number]
[2022-11-26] MEDS: LOPERAMIDE HCL 2 MG CAPSULE PO PRN ×2 (05:47→16:28)
[2022-11-26] MEDS: PANTOPRAZOLE 40MG TABLET PO SCH (05:47)
[2022-11-26 06:39] LABS: Potassium 3.3 mmol/L (3.5-5.1)
[2022-11-26] MEDS ORDERED: METOLAZONE 2.5 MG TABLET PO SCH (08:00)
[2022-11-26] MEDS ORDERED: POTASSIUM 25 MEQ EFFERV TAB PO ONE (08:00)
[2022-11-26] MEDS: METOPROLOL TAR 25 MG TAB PO SCH ×2 (09:00→21:00)
[2022-11-26] MEDS: NYSTATIN 100MU/GM CREAM 15GM TOP SCH ×2 (09:00→20:46)
[2022-11-26] MEDS: FUROSEMIDE 40 MG/4 ML VIAL IV SCH ×3 (09:00→20:45)
[2022-11-26 09:03] LABS: Arterial Blood Carboxyhemoglob 1.5 % (0-1.5); Blood Gas Oxyhemoglobin 92.1 % (94-97)
[2022-11-26] MEDS: POTASSIUM CL SA 10 MEQ TAB PO SCH ×2 (09:13→20:45)
[2022-11-26] MEDS: DOXYCYCLINE 100 MG CAP PO SCH ×2 (09:13→20:45)
[2022-11-26] MEDS: acetaZOLAMIDE 250 MG TAB PO SCH ×2 (09:14→20:45)
[2022-11-26] MEDS: DULERA 200/5 (MOMETASONE/FORMOTEROL) INHALER IH SCH ×2 (09:14→20:45)
--- NOTE | 2022-11-26 12:33 | P.CNS ---
Date of Consult: 11/26/22 Reason for Consult: Respiratory failure Chief Complaint: Lower extremity edema diastolic heart failure History of Present Illness: Patient is 87 years of age having problems after she had a fall in August history of lymphedema developed progressive lower extremity edema eyes any fever chills is never smoked daughter at the bedside history of snoring excessive daytime sleepiness and was admitted due to not responding to diuretics feeling a little better Allergies ROSAURA Inhibitors Allergy (Verified 08/26/20 13:18) Unknown bacitracin [From Neosporin ([id number])] Allergy (Verified 08/26/20 13:18) Unknown Latex, Natural Rubber Allergy (Verified 08/26/20 13:18) Unknown neomycin [From Neosporin ([id number])] Allergy (Verified 08/26/20 13:18) Unknown Penicillins Allergy (Verified 08/26/20 13:18) Unknown polymyxin B [From Neosporin ([id number]-iio-flhlu)] Allergy (Verified 08/26/20 13:18) Unknown Erythromycin Allergy (Uncoded 08/26/20 13:18) Unknown Neosporin ([id number]-dlrrh-[id number]) Allergy (Uncoded 08/26/20 13:18) Unknown Home Medications: Hydralazine [Apresoline*] 2 tab PO BID 01/24/16 LORazepam [Ativan*] 0.5 mg PO BEDTIME 01/24/16 Pantoprazole [Protonix Tab*] 40 mg PO DAILY 01/24/16 Nisoldipine Er 8.5 mg PO DAILYPRN PRN 01/02/17 Rivaroxaban [Xarelto] 20 mg PO DAILY AT SUPPER 01/02/17 carvediloL [Coreg*] 25 mg PO BID 01/02/17 Fluticasone/Salmeterol [Advair 250/50 Diskus] 1 puff IH BID #1 disk 01/04/17 Furosemide 40 mg PO BID 11/20/22 Potassium Chloride 30 tab PO TID 11/20/22 Rosuvastatin Calcium 1 tab PO SEECOM 11/20/22 - Past Medical/Surgical History Diabetic: No -: ARTHRITIS -: ANXIETY -: AFIB -: BRONCHITIS -: BREAST CA -: HTN -: HYSTERECTOMY -: BILATERAL CATARACT SX -: LEFT LUMPECTOMY -: LEFT LOBE THYROID REMOVED - Family History Father Medical History: Heart disease Mother Medical History: Other (see notes) Notes: alzheimers - Social History Alcohol use: No CD- Drugs: No Caffeine use: Yes Place of Residence: Home Review of Systems 10-point ROS is otherwise unremarkable Respiratory: Shortness of Breath Cardiovascular: Edema Physical Examination Temp Pulse Resp BP Pulse Ox 98.0 F 62 20 119/53 L 98 11/26/22 08:00 11/26/22 09:13 11/26/22 08:00 11/26/22 09:13 11/26/22 08:00 General: Alert, In no apparent distress, Oriented x3 Neck: Supple Respiratory: Clear to auscultation bilaterally, Normal air movement Cardiovascular: Edema (3+ edema), Irregular heart rate/rhythm Gastrointestinal: Normal bowel sounds, Soft and benign Laboratory Data (last 24 hrs) 11/26/22 06:11: Magnesium 2.7 H 11/26/22 06:11: Sodium 135 L, Potassium 3.3 L, BUN 22 H, Creatinine 1.33 H, Glucose 99 11/25/22 21:06: Potassium 3.6 D - Problems (1) Chronic respiratory failure Current Visit: Yes Status: Acute Plan: Patient is 87 years of age admitted with progressive lower extremity edema diastolic heart failure upper Respiratory failure I suspect is chronic have underlying obesity hypoventilation syndrome rest x-ray is clear mild impairment of renal function mildly anemic no history of obstructive airways disease suspect he may have underlying obesity hypoventilation syndrome/sleep apnea. An outpatient sleep study patient will not qualify for noninvasive ventilator now is on Lasix consider adding Farxiga approved for diastolic dysfunction also need an outpatient pulmonary function test patient is on Diamox Qualifiers: Respiratory failure complication: unspecified whether with hypoxia or hypercapnia Qualified Code(s): J96.10 - Chronic respiratory failure, unspecified whether with hypoxia or hypercapnia
[2022-11-26] MEDS ORDERED: POTASSIUM CL SA 10 MEQ TAB PO ONE (16:00)
[2022-11-26] MEDS: RIVAROXABAN 15 MG TABLET PO SCH (16:27)
[2022-11-26] MEDS: LORAZEPAM 0.5 MG TABLET PO SCH (21:00)
--- NOTE | 2022-11-26 23:32 | PN ---
Date of Progress Note: 11/26/2022 Subjective: The patient was seen this morning for followup. No new complaints or problems reported by the patient. Lying in bed, not in distress. She was more awake and alert today compared to yeste rday and day before yesterday. Objective: Vital Signs: Reviewed. HEENT: Unremarkable. Lungs: Clear to auscultation. Heart: Sounds normal. Abdomen: Soft. Bowel sounds normal. No guarding, rigidity, tenderness, or distention. Presence of abdominal wall edema present on the lateral abdominal wall, unchanged from before. Extremities: Bilateral leg edema remains unchanged from yesterday. Skin: Presence of rash in bilateral groin area and also has some redness of the skin involving both lower legs. Impression: 1.Congestive heart failure, chronic, diastolic, with acute exacerbation. 2.Lymphedema, legs. 3.Dermatophytosis. 4.Cellulitis, bilateral legs. 5.Chronic kidney disease, stage 4. 6.Paroxysmal atrial fibrillation. 7.Chronic anticoagulation therapy. 8.Chronic respiratory failure with hypoxia. Plan: After I saw the patient today, arterial blood gas was ordered and that showed her carbon dioxi de was elevated and I did consult Dr. Fung from Pulmonary Service to see if the patient would robby lify for BiPAP use at home or noninvasive ventilator use at home. He did evaluate the patient and co mmunicated with me that because the patient does not have any diagnosis of COPD or any neuromuscular disorder, she will not qualify for such device and the patient will need to get outpatient sleep stud y done, which he will help make arrangements after the discharge and then he will decide further plan of treatment at that time. We will continue her on oxygen 2 L per nasal cannula as she is using cur rently. The patient to continue to work with Physical Therapy. Continue Lasix per order and today w e will go ahead and give her metolazone 2.5 mg 1 dose today. Her weight was 217 pounds today. We wi ll continue Lasix and metoprolol per order. Replace potassium per order. Continue Xarelto. We will start her on oral doxycycline. Repeat blood work tomorrow morning and details and plan of treatment discussed with the patient and her daughter who was at bedside. EHSAN/MODL Voice ID: [id number] Report ID: [id number]
[2022-11-27] MEDS: PANTOPRAZOLE 40MG TABLET PO SCH (06:34)
[2022-11-27 06:40] LABS: Absolute Lymphocytes (CBC) 0.7 K/uL (0.7-4.9); Lymphocytes % 20.2 % (15.3-44.8); MCV 86.5 fL (80-100); MPV 7.4 fL (7.6-11.3); RBC Red Blood Cell Count 3.35 M/uL (3.86-4.86)
[2022-11-27 06:52] LABS: Magnesium 2.7 mg/dL (1.6-2.4); Potassium 3.3 mmol/L (3.5-5.1)
[2022-11-27] MEDS: METOPROLOL TAR 25 MG TAB PO SCH ×2 (09:00→21:09)
[2022-11-27] MEDS: NYSTATIN 100MU/GM CREAM 15GM TOP SCH ×2 (09:00→21:12)
[2022-11-27] MEDS ORDERED: POTASSIUM 25 MEQ EFFERV TAB PO ONE ×2 (09:00→21:00)
[2022-11-27] MEDS: acetaZOLAMIDE 250 MG TAB PO SCH ×2 (09:55→21:09)
[2022-11-27] MEDS: DULERA 200/5 (MOMETASONE/FORMOTEROL) INHALER IH SCH ×2 (09:56→21:11)
[2022-11-27] MEDS: FUROSEMIDE 40 MG/4 ML VIAL IV SCH ×3 (09:57→21:07)
[2022-11-27] MEDS: POTASSIUM CL SA 10 MEQ TAB PO SCH ×2 (09:57→21:08)
[2022-11-27] MEDS: DOXYCYCLINE 100 MG CAP PO SCH ×2 (10:05→21:00)
--- NOTE | 2022-11-27 16:50 | PN ---
Date of Progress Note: 11/27/2022 Subjective: The patient was seen this morning for followup. She was sitting at bedside, eating her b reakfast. Denies any complaints this morning. She urinated very well yesterday with her diuretic th erapy and overall feels a lot better as her leg swelling is getting better. She is not hurting as mu ch in her legs and able to ambulate lot better. Overall, she feels better. Remains on oxygen 2 L/mi nute nasal cannula. Objective: Vital Signs: Reviewed. HEENT: Unremarkable. Lungs: Clear to auscultation. Heart: Sounds normal. Abdomen: Soft. Bowel sounds normal. No guarding, rigidity, tenderness, distention. Extremities: Bilateral leg edema present but better than before. Laboratory Data: White count 3.5, hemoglobin 9.3, platelets 207. Sodium 138, potassium 3.3, chloride 95, bicarb 40, BUN 19, creatinine 1.19, glucose 93, magnesium 2.7. Impression: 1.Congestive heart failure, chronic, diastolic, with acute exacerbation. 2.Chronic respiratory failure with hypercapnia and hypoxia. 3.Paroxysmal atrial fibrillation. 4.Chronic anticoagulation therapy. 5.Chronic kidney disease, stage IV, improving. 6.Anemia, due to chronic kidney disease. 7.Lymphedema, legs. 8.Cellulitis, bilateral lower extremity. Plan: We will go ahead and continue doxycycline which was started yesterday. Redness of the lower e xtremities better than before. We will continue current diuretic therapy. We will go ahead and give another dose of metolazone 2.5 mg p.o. x1 dose today and the patient is responding very well. Her w eight is down to 210 pounds and she came in with her weight as 229 pounds. We will replace potassium per protocol. Yesterday's blood gas result was reviewed with the patient and I did communicate with Dr. Fung yesterday and today to see if he can help make arrangements for BiPAP at home and he in formed me that the patient does not have appropriate applicable diagnosis for home BiPAP use, and she will have to do home sleep study or outpatient sleep study and that will be able to help make furthe r decision about treatment. So at this point, we will see if the patient will still continue to need oxygen or not. She does not have any home oxygen and we will try to wean off as her fluid status is improving and if she needs oxygen, we will have to make arrangements. Otherwise, our hope is to send her home without oxygen. I did communicate with the patient today in presence of her daughter nidia ding consideration of moving into assisted care facility like at [facility] in [facility] a nd she is going to think about it and communicate with her daughter regarding this over the weekend. I will see her tomorrow for followup. EHSAN/MODL Voice ID: [id number] Report ID: [id number]
[2022-11-27] MEDS: RIVAROXABAN 15 MG TABLET PO SCH (17:25)
[2022-11-27] MEDS: LORAZEPAM 0.5 MG TABLET PO SCH (21:09)
[2022-11-28 06:32] LABS: Magnesium 2.6 mg/dL (1.6-2.4); Potassium 3.4 mmol/L (3.5-5.1)
[2022-11-28] MEDS: PANTOPRAZOLE 40MG TABLET PO SCH (06:41)
[2022-11-28] MEDS: NYSTATIN 100MU/GM CREAM 15GM TOP SCH ×2 (09:00→20:40)
[2022-11-28] MEDS ORDERED: POTASSIUM CL SA 10 MEQ TAB PO ONE (09:00)
[2022-11-28] MEDS: FUROSEMIDE 40 MG/4 ML VIAL IV SCH ×3 (10:03→20:40)
[2022-11-28] MEDS: acetaZOLAMIDE 250 MG TAB PO SCH ×2 (10:03→20:38)
[2022-11-28] MEDS: METOPROLOL TAR 25 MG TAB PO SCH ×2 (10:04→20:38)
[2022-11-28] MEDS: POTASSIUM CL SA 10 MEQ TAB PO SCH ×2 (10:04→20:37)
[2022-11-28] MEDS: DULERA 200/5 (MOMETASONE/FORMOTEROL) INHALER IH SCH ×2 (10:05→20:41)
[2022-11-28] MEDS: DOXYCYCLINE 100 MG CAP PO SCH ×2 (10:10→20:38)
--- NOTE | 2022-11-28 11:25 | PN ---
Date of Progress Note: 11/28/2022 Subjective: The patient was seen this morning for followup. She was sitting at bedside. Her daught er and son-in-law were present in the room with her. Overall, she feels a lot better. She is tolera ting diuretic treatment very well and diuresing very well and has lost significant amount of weight. Her weight today was 201 pounds and she came in with 230 pounds. She was able to maintain adequate oxygenation without using any supplemental oxygen all day yesterday, but during nighttime, the patien mars reports that her oxygen saturation dropped down to 73% and oxygen was placed back during nighttime at 2 L/minute, and I have advised her that with that in mind, she will need to continue to use oxygen at home definitely at nighttime for sure and as needed during daytime if oxygen saturation drops les s than 90% during daytime. She understands and agrees with that. We will request consultation from social service to help make arrangements for home oxygen. Physical Examination: Vital Signs: Reviewed. HEENT: Unremarkable. Lungs: Clear to auscultation except minimal basal rales. Not in any respiratory distress. Heart: Sounds normal. Abdomen: Soft. Bowel sounds normal. No guarding, rigidity, tenderness, distention. Extremities: Bilateral leg edema present but improving on a day-to-day basis for last 2 days, but st ill has lot of leg swelling, but overall much better than before. Skin: Redness from both lower extremity also has improved. The patient has lot of dry skin on her l ower legs and she applies moisturizing skin lotion, and she was encouraged to continue to do so. Laboratory Data: Sodium 135, potassium 3.4, chloride 93, bicarb 40, BUN 20, creatinine 1.27, glucose 97. Impression: 1.Chronic diastolic heart failure, with acute exacerbation. 2.Chronic respiratory failure with hypoxia. 3.Chronic respiratory failure with hypercapnia. 4.Lymphedema, legs. 5.Cellulitis, bilateral legs. 6.Anemia due to chronic kidney disease. We will go ahead and continue current diuretic therapy. We will continue current doxycycline. Farhat nue metoprolol and Xarelto per order. Monitor intake, output, daily weight. For hypokalemia, we monica l replace potassium per protocol and we will repeat blood work tomorrow morning. Possible discharge to go home day after tomorrow. The patient and her family, they were communicating regarding her goi ng into assisted care facility at [facility], and the patient says that upon discharge, she will go back home, but she will start looking into going to this facility in near future. The patient is al so requesting to talk to somebody regarding low-salt diet, and we will request consultation from diet itian regarding that. EHSAN/MODL Voice ID: [id number] Report ID: [id number]
[2022-11-28] MEDS: RIVAROXABAN 15 MG TABLET PO SCH (16:22)
[2022-11-28] MEDS: LORAZEPAM 0.5 MG TABLET PO SCH (20:38)
[2022-11-28] MEDS ORDERED: POTASSIUM 25 MEQ EFFERV TAB PO ONE (21:00)
[2022-11-29] MEDS: PANTOPRAZOLE 40MG TABLET PO SCH (06:32)
[2022-11-29 06:55] LABS: Magnesium 2.7 mg/dL (1.6-2.4); Potassium 3.4 mmol/L (3.5-5.1)
[2022-11-29] MEDS: DOXYCYCLINE 100 MG CAP PO SCH ×2 (08:20→21:07)
[2022-11-29] MEDS: FUROSEMIDE 40 MG/4 ML VIAL IV SCH ×3 (08:20→21:08)
[2022-11-29] MEDS: POTASSIUM CL SA 10 MEQ TAB PO SCH ×2 (08:21→21:08)
[2022-11-29] MEDS: METOPROLOL TAR 25 MG TAB PO SCH ×2 (08:21→21:07)
[2022-11-29] MEDS: NYSTATIN 100MU/GM CREAM 15GM TOP SCH ×2 (08:22→21:09)
[2022-11-29] MEDS: DULERA 200/5 (MOMETASONE/FORMOTEROL) INHALER IH SCH ×2 (08:22→21:09)
[2022-11-29] MEDS: acetaZOLAMIDE 250 MG TAB PO SCH ×2 (08:25→21:08)
[2022-11-29] MEDS ORDERED: POTASSIUM CL SA 10 MEQ TAB PO ONE (09:00)
[2022-11-29] MEDS: RIVAROXABAN 15 MG TABLET PO SCH (16:04)
--- NOTE | 2022-11-29 16:50 | PN ---
Date of Progress Note: 11/29/2022 Subjective: The patient was seen this morning for followup. She was lying in bed, not in distress. No new complaints or problems reported by her. Objective: Vital Signs: Reviewed. HEENT: Unremarkable. Lungs: Clear to auscultation. Heart: Sounds normal. Abdomen: Soft. Bowel sounds normal. No guarding, rigidity, tenderness, distention. Edema of abdom inal wall, but better than before. Extremities: Bilateral leg edema, but significantly better than before. Laboratory Data: Sodium 138, potassium 3.4, chloride 94, bicarb 40, BUN 21, creatinine 1.31, glucose 96. Impression: 1.Congestive heart failure, chronic, diastolic, with acute exacerbation. 2.Lymphedema, legs. 3.Cellulitis, legs. 4.Chronic kidney disease, stage 4. 5.Anemia due to chronic kidney disease. 6.Paroxysmal atrial fibrillation. Plan: We will go ahead and continue current diuretic therapy and antibiotic which is doxycycline. C ontinue metoprolol and Lasix per order. The patient's weight today is 198 pounds. Overall, she has diuresed very well and has lost about 32 pounds since the time of admission with diuretic therapy. H ome oxygen order was signed yesterday and the patient will have her home oxygen get delivered today a s daughter was informing me and our plan is to possibly discharge her to go home tomorrow with home h ealth and home physical therapy, which was also ordered for her. Hypokalemia will be corrected with electrolyte replacement protocol. EHSAN/MODL Voice ID: [id number] Report ID: [id number]
[2022-11-29] MEDS: LORAZEPAM 0.5 MG TABLET PO SCH (21:07)
[2022-11-30] MEDS: PANTOPRAZOLE 40MG TABLET PO SCH (06:48)
[2022-11-30] MEDS: METOPROLOL TAR 25 MG TAB PO SCH (09:14)
[2022-11-30] MEDS: acetaZOLAMIDE 250 MG TAB PO SCH (09:14)
[2022-11-30] MEDS: DOXYCYCLINE 100 MG CAP PO SCH (09:14)
[2022-11-30] MEDS: POTASSIUM CL SA 10 MEQ TAB PO SCH (09:14)
[2022-11-30] MEDS: FUROSEMIDE 40 MG/4 ML VIAL IV SCH ×2 (09:15→14:13)
[2022-11-30] MEDS: DULERA 200/5 (MOMETASONE/FORMOTEROL) INHALER IH SCH (09:17)
[2022-11-30] MEDS: NYSTATIN 100MU/GM CREAM 15GM TOP SCH (09:19)
[2022-11-30 12:09] VITALS: BP 104/44; TEMP 98.4
[2022-11-30 14:30] VITALS: O2SAT 99
[2022-11-30] MEDS: RIVAROXABAN 15 MG TABLET PO SCH (17:21)
--- NOTE | 2022-12-01 13:07 | DS ---
Date of Discharge: 11/30/2022 Disposition: Discharged to go home. Physical Examination: HEENT: Unremarkable. Lungs: Clear to auscultation. Heart: Sounds normal. Abdomen: Soft. Bowel sounds normal. No guarding, rigidity, tenderness, distention. Extremities: Bilateral leg edema present, but significantly better than before. Skin: Redness from both lower extremities better than before. Skin over both lower legs is dry, but better than before. Laboratory Data: Upon admission on 11/19/2022; white count 3.9, hemoglobin 10.2 and a platelet count of 230. On 11/27/2022; white count 3.5, hemoglobin 9.3, and a platelet count of 207. Last chemistr y from yesterday; sodium 138, potassium 3.4, chloride 94, bicarb 40, BUN 21, creatinine 1.31, glucose 96. Potassium was corrected and repeat potassium yesterday evening was 3.6. Upon admission on 10/29; sodium 137, potassium 4.3, chloride 100, bicarb 32, BUN 29, creatinine 1.84, glucose 123. Li hung function tests unremarkable. Lowest potassium was 2.9 on 11/24/2022. Discharge Medications And Instructions: Continue all prior home medications except following changes . 1.Stop carvedilol. 2.Stop nifedipine. 3.Change furosemide 40 mg, take 2 tablets by mouth 2 times a day and change potassium chloride 10 mE q, take 2 tablets by mouth 2 times a day. 4.Start metoprolol 25 mg, take 1 tablet by mouth 2 times a day. 5.Metolazone 2.5 mg, take 1 tablet by mouth once a week. 6.Doxycycline 100 mg take 1 capsule by mouth 2 times a day. 7.Follow up at my office in 1-2 weeks. 8.Limit your water intake up to 45 ounces a day. Hospital Course: This is an 87-year-old very pleasant female patient, admitted to the hospital with weight gain, shortness of breath, feeling weak, leg swelling, and poor appetite. Please see dictated H and P for more information. The patient was evaluated at office and was admitted to the hospital on November 19, 2022 with acute exacerbation of chronic diastolic heart failure. After she was admit mayela to the hospital, she was started on IV diuretic therapy. Initially, she was given Lasix 40 mg IV every 12 hours and then subsequently we increased it to every 8 hours. She also received metolazone 2.5 mg dose 2-3 times during this hospitalization. She started to have increase in her bicarb, so daniel rangel started her on acetazolamide and in spite of using this medication, her bicarb kept on going up and also for couple of days, she was having increasing weakness, increased sleepiness, so arterial blood gas showed evidence of hypoxia along with carbon dioxide retention so at that time we discontinued a cetazolamide. Pulmonary consultation was requested from Dr. Fung for consideration of home BiPAP machine and he evaluated the patient and informed me that the patient will not qualify for home BiPA P or noninvasive ventilator because she does not have any underlying COPD problem and she will need t o have outpatient sleep study done before he can provide further recommendation. The patient was mad e aware of this and we will have to handle it on outpatient basis, but meanwhile she does need home o xygen and Social Service was requested to make arrangements and once all the arrangements completed, the patient was discharged to go home. Physical Therapy was consulted and the patient did ambulate. She achieved more diuresis. She was able to ambulate better. She has chronic lymphedema problem of her both legs and also was noted to have some cellulitis of bilateral lower leg and doxycycline was added for that. Cardiology consultation was requested from Dr. Marshall and echocardiogram showed norm al ejection fraction and severe diastolic dysfunction, severe pulmonary hypertension, and severe tric uspid regurgitation. The patient responded very well to diuretic therapy. Her initial weight when s he was admitted to the hospital was 229-230 pounds and last weight yesterday was 198 pounds. Carotid Doppler had shown bilateral moderate carotid artery stenosis with 50% to 69% in both internal caroti d arteries. Overall, the patient was discharged to go home in improved and stable condition with abo ve-mentioned medications and instructions. I did go over all the discharge medications with the david ent's daughter this morning. Final Diagnoses: 1.Chronic diastolic heart failure, with acute exacerbation. 2.Hypokalemia. 3.Anemia. 4.Chronic kidney disease, stage 3B. 5.Acute kidney injury. 6.Lymphedema, both legs. 7.Cellulitis, both legs. 8.Hypertension. 9.Chronic respiratory failure with hypoxia. 10.Hyperlipidemia. 11.Paroxysmal atrial fibrillation. 12.Chronic anticoagulation therapy. 13.Peripheral vascular disease. 14.Bilateral carotid artery stenosis. 15.Gastroesophageal reflux disease. 16.Diverticulosis. EHSAN/MODL Voice ID: [id number] Report ID: [id number]
== END 2022-11-30 18:40 | disposition home health service (06) | DRG 291 ==
LOC: 2ND 19:50
PROVIDERS: ADMIT Internal Medicine; ATTEND Internal Medicine
DX: I13.0 Hypertensive heart and chronic kidney disease with heart failure and stage 1 through stage 4 chronic kidney disease, or unspecified chronic kidney disease (principal); I50.33 Acute on chronic diastolic (congestive) heart failure; N17.9 Acute kidney failure, unspecified; L03.116 Cellulitis of left lower limb; L03.115 Cellulitis of right lower limb; J96.11 Chronic respiratory failure with hypoxia; J96.12 Chronic respiratory failure with hypercapnia; N18.32 Chronic kidney disease, stage 3b; D63.1 Anemia in chronic kidney disease; E78.5 Hyperlipidemia, unspecified; E03.9 Hypothyroidism, unspecified; I48.0 Paroxysmal atrial fibrillation; K21.9 Gastro-esophageal reflux disease without esophagitis; I89.0 Lymphedema, not elsewhere classified; I73.9 Peripheral vascular disease, unspecified; J30.9 Allergic rhinitis, unspecified; I27.20 Pulmonary hypertension, unspecified; E87.6 Hypokalemia; I65.23 Occlusion and stenosis of bilateral carotid arteries; M19.09 Primary osteoarthritis, other specified site; K57.90 Diverticulosis of intestine, part unspecified, without perforation or abscess without bleeding; B35.9 Dermatophytosis, unspecified; Z66 Do not resuscitate; Z85.3 Personal history of malignant neoplasm of breast; Z60.2 Problems related to living alone; Z88.1 Allergy status to other antibiotic agents; Z88.8 Allergy status to other drugs, medicaments and biological substances; Z79.01 Long term (current) use of anticoagulants; Z91.048 Other nonmedicinal substance allergy status; Z91.040 Latex allergy status; Z79.899 Other long term (current) drug therapy; Z20.822 Contact with and (suspected) exposure to COVID-19
CPT/HCPCS: 36415; 71045; 74176; 80048; 80053; 82805; 83735; 83880; 84132; 84443; 85025; 87811; 93306; 93880; 97110; 97116; 97161; 97530; J1940; J3480; J3535; J7050